=== PATIENT | female | born 1940 | race Caucasian/White ===

== ENCOUNTER 2019-02-27 15:31 | Inpatient (IN) ==
[2019-02-27] MEDS ORDERED: NS 1,000 ML IV ONE ×2 (16:07→18:30)
[2019-02-27] MEDS ORDERED: ROCEPHIN 1 GM in NS 50 ML IV ONE (16:07)
--- NOTE | 2019-02-27 16:19 | PROVIDER DOCUMENTATION ---
HPI-Fever - General Stated Complaint: AMS Time Seen by Provider: 02/27/19 16:01 Source: family, EMS Allergies/Adverse Reactions: Patient Allergies Allergy/AdvReac Type Severity Reaction Status Date / Time oxycodone [Oxycodone] AdvReac Intermediate Unknown Verified 04/15/13 17:51 lorazepam [From Ativan] AdvReac agitation Verified 04/15/13 17:51 sulfamethoxazole AdvReac Unknown Verified 01/19/17 12:35 [From Bactrim] trimethoprim [From Bactrim] AdvReac Unknown Verified 01/19/17 12:35 Home Medications: Home Medication List Medication Instructions Recorded Confirmed Last Taken Type Amlodipine [Norvasc] 5 mg PO DAILY 12/04/12 01/18/17 01/18/17 History 5 Atorvastatin Calcium [Lipitor] 40 mg PO QHS 12/04/12 01/18/17 01/18/17 History 40 Baclofen 20 mg PO BID 12/04/12 01/18/17 01/18/17 History 20 Citalopram [Celexa] 40 mg PO DAILY 12/04/12 01/18/17 01/18/17 History 40mg Dextroamphetamine/Amphetamine 20 mg PO BID 12/04/12 01/18/17 01/18/17 History [Adderall 20 mg Tablet] 20mg Furosemide 40 mg PO QAM 12/04/12 01/18/17 01/18/17 History 40mg Levothyroxine [Synthroid] 100 microgm PO HS 12/04/12 01/18/17 01/18/17 History 100mg Losartan Potassium [Cozaar] 25 mg PO QAM 12/04/12 01/18/17 01/18/17 History 25mg Tizanidine [Zanaflex] 4 mg PO HS 12/04/12 01/18/17 01/18/17 History 4mg Tramadol [Ultram] 50 mg PO Q6H PRN PRN 12/04/12 01/19/17 01/18/17 History Polyethylene Glycol 3350 [Miralax] 17 gm PO DAILY 12/12/12 01/18/17 01/18/17 History 17gram Acetaminophen [Pain Relief] 325 mg PO Q4HR PRN 01/18/17 01/19/17 Unknown History Ascorbate Calcium [Vitamin C] 500 mg PO BID 01/18/17 01/18/17 01/18/17 History 500mg Bisacodyl [Dulcolax] 10 mg VT DAILY PRN PRN 01/18/17 01/19/17 Unknown History Chlorhexidine Gluconate Liquid 2 oz ORDERED BID 01/18/17 01/18/17 01/18/17 History [Hibiclens Liquid] 2 oz Cranberry Fruit Extract [Cranberry] 425 mg PO DAILY 01/18/17 01/18/17 01/18/17 History 425 Cyclosporine 0.05% Oph Drops 3 each BOTH EYES BID 01/18/17 01/18/17 01/18/17 History [Restasis 0.05% Oph Drops] Fexofenadine [Rylee] 180 mg PO DAILY 01/18/17 01/18/17 01/18/17 History Fingolimod HCl [Gilenya] 0.5 mg PO DAILY 01/18/17 01/18/17 01/18/17 History 0.5mg Fluticasone 50 Mcg Nasal [place] 2 spray COLTON DAILY 01/18/17 01/18/17 01/18/17 History [Flonase] Hydrocortisone 1% Cream 1 applicatn TOP DAILY PRN PRN 01/18/17 01/18/17 01/18/17 History Lidocaine 5% Patch [Lidoderm] 1 each TOP DAILY 01/18/17 01/18/17 01/18/17 History 1 Linaclotide [Linzess] 145 mcg PO Q24HR PRN 01/18/17 01/18/17 Unknown History Meloxicam [Mobic] 15 mg PO DAILY 01/18/17 01/18/17 01/18/17 History 15mg Multivitamin with Minerals 1 each PO DAILY 01/18/17 01/18/17 01/18/17 History [Multiple Vitamin] 1 Nitrofurantoin [place]/Macrocryst 100 mg PO 01/18/17 01/18/17 History [Macrobid] Omeprazole 20 mg PO DAILY 01/18/17 01/18/17 01/18/17 History 20mg Oxybutynin Chloride [Oxybutynin 5 mg PO DAILY 01/18/17 01/18/17 01/18/17 History Chloride ER] 5mg Potassium Chloride E.r. [Klor-Con] 20 meq PO DAILY 1001/18/17 01/18/17 History 20MEQ Simethicone [Bicarsim Forte] 125 mg PO 4XDAY 01/18/17 01/18/17 01/18/17 History Trazodone HCl 50 mg PO HS PRN PRN 01/18/17 01/18/17 Unknown History - History of Present Illness-Fever Nature of Presenting Problem: 78 YO F brought in from detention for AMS and fever x 2 days. Pt had urine tested at facility and was found to have a UTI. Brother is at bedside. Per family, pt normally speaks, is not on home o2. At presentation, pt was obtunded and not responding to questions. Arousable to strong stimuli. Maintaining airway. Pt with Temp and elevated HR. Sepsis protocol started. 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: Initiated none Cognitive Baseline: poor alertness Modifying Factors: improves with: nothing Similar Symptoms Previously?: Yes Recently seen or treated by another doctor?: Yes - Glascow Coma Score Best Eye Response (Rolando): (2) open to pain Best Verbal Response (Rolando): (2) incomprehsible sounds Best Motor Response (Rolando): (5) localizes to pain Review of Systems - Adult - REVIEW OF SYSTEMS - ADULT ROS:: limited per condition Constitutional: reports: fever Respiratory: reports: cough Gastrointestinal: reports: abdominal pain (per brother) Past History - Adult - PAST MEDICAL HISTORY-ADULT Review of Records: reports: Social history reviewed & non-contributory. - SOCIAL HISTORY Living Situation: care facility Physical Exam-General - PHYSICAL EXAM-ADULT Initial Vital Signs Reviewed: Yes - CONSTITUTIONAL General Appearance: no apparent distress, obtunded - EYES Eyes: pink conjunctivae - NECK Neck: supple, normal inspection - RESPIRATORY Respiratory: no accessory muscle use, wheezing - CARDIOVASCULAR Cardiovascular: tachycardia - GASTROINTESTINAL (ABDOMEN) Abdominal Exam: non tender, soft Progress - PLAN OF CARE/RESULTS Progress/Plan/Lab Results: Vital Signs - 8 hr 02/27/19 15:42 02/27/19 16:04 02/27/19 16:07 Temperature 98.7 F Pulse Rate 130 H Respiratory Rate 18 Blood Pressure 178/98 127/77 O2 Sat by Pulse Oximetry 99 99 100 02/27/19 16:12 02/27/19 16:31 02/27/19 16:45 Temperature 102.9 F H Pulse Rate 139 H 132 H 142 H Respiratory Rate 19 17 26 H Blood Pressure 127/77 O2 Sat by Pulse Oximetry 99 97 98 02/27/19 17:00 02/27/19 17:02 02/27/19 17:15 Temperature Pulse Rate 130 H 119 H 127 H Respiratory Rate 18 21 19 Blood Pressure 121/57 O2 Sat by Pulse Oximetry 99 99 98 02/27/19 17:30 02/27/19 17:31 02/27/19 17:45 Temperature Pulse Rate 122 H 124 H 115 H Respiratory Rate 23 22 17 Blood Pressure 137/67 O2 Sat by Pulse Oximetry 97 97 97 02/27/19 18:00 02/27/19 18:01 02/27/19 18:15 Temperature Pulse Rate 117 H 115 H 121 H Respiratory Rate 14 17 21 Blood Pressure 109/57 O2 Sat by Pulse Oximetry 96 96 95 02/27/19 18:28 02/27/19 18:30 02/27/19 18:31 Temperature Pulse Rate 115 H 119 H 108 H Respiratory Rate 21 21 13 Blood Pressure 94/51 106/50 O2 Sat by Pulse Oximetry 95 95 95 02/27/19 18:45 02/27/19 19:46 Temperature 98.3 F Pulse Rate 106 H Respiratory Rate 13 Blood Pressure O2 Sat by Pulse Oximetry 95 Laboratory Results - last 24 hr 02/27/19 02/27/19 02/27/19 16:51 16:51 16:51 WBC 7.00 RBC 4.12 L Hgb 12.4 Hct 38.8 MCV 94.2 MCH 30.1 MCHC 32.0 L RDW Std Deviation 15.1 H Plt Count 161 MPV 11.3 H Immature Gran % (Auto) 0.0 Neut % (Auto) 91.2 H Lymph % (Auto) 2.1 L [place] % (Auto) 6.6 Eos % (Auto) 0.1 Baso % (Auto) 0.0 Immature Gran # (Auto) 0.00 Neut # (Auto) 6.38 Lymph # (Auto) 0.15 L [place] # (Auto) 0.46 Eos # (Auto) 0.01 Baso # (Auto) 0.00 Segmented Neutrophils 92 H Band Neutrophils 6 H Lymphocytes 2 L Large Platelets 2+ PT 13.6 INR 1.03 PTT (Actin FS) 35.3 Sodium 136 Potassium 4.3 Chloride 96 L Carbon Dioxide 27 Anion Gap 13 BUN 21 Creatinine 0.9 Estimated GFR/1.73 m2 > 60 BUN/Creatinine Ratio 23 Glucose 150 H Calculated Osmolality 278 Calcium 9.0 Total Bilirubin 1.68 H AST 35 H ALT 26 Alkaline Phosphatase 285 H Creatine Kinase 298 H Creatine Kinase Index 1.7 CK-MB (CK-2) 5.19 H Troponin T Total Protein 6.1 L Albumin 3.5 Globulin 2.6 Albumin/Globulin Ratio 1.3 Plasma Lactate Urine Source Urine Color Urine Turbidity Urine pH Ur Specific [place] Urine Protein Ur Glucose (Stick) Ur Ketones (Stick) Urine Blood Urine Nitrite Urine Bilirubin Urobilinogen Dipstick Urine Leukocytes Urine WBC (Auto) Urine RBC (Auto) U Epithel Cells (Auto) Urine Bacteria (Auto) Urine Crystals Small Round Cells Urine Casts Urine Yeast-like Cells 02/27/19 02/27/19 02/27/19 16:51 16:51 17:46 WBC RBC Hgb Hct MCV MCH MCHC RDW Std Deviation Plt Count MPV Immature Gran % (Auto) Neut % (Auto) Lymph % (Auto) [place] % (Auto) Eos % (Auto) Baso % (Auto) Immature Gran # (Auto) Neut # (Auto) Lymph # (Auto) [place] # (Auto) Eos # (Auto) Baso # (Auto) Segmented Neutrophils Band Neutrophils Lymphocytes Large Platelets PT INR PTT (Actin FS) Sodium Potassium Chloride Carbon Dioxide Anion Gap BUN Creatinine Estimated GFR/1.73 m2 BUN/Creatinine Ratio Glucose Calculated Osmolality Calcium Total Bilirubin AST ALT Alkaline Phosphatase Creatine Kinase Creatine Kinase Index CK-MB (CK-2) Troponin T 0.027 Total Protein Albumin Globulin Albumin/Globulin Ratio Plasma Lactate 1.3 Urine Source CATH Urine Color ORANGE Urine Turbidity TURBID Urine pH 6.0 Ur Specific [place] 1.017 Urine Protein 100 A Ur Glucose (Stick) NEGATIVE Ur Ketones (Stick) 10 A Urine Blood SMALL A Urine Nitrite NEGATIVE Urine Bilirubin NEGATIVE Urobilinogen Dipstick 3 A Urine Leukocytes LARGE A Urine WBC (Auto) TNTC A Urine RBC (Auto) <10 U Epithel Cells (Auto) >10 A Urine Bacteria (Auto) 4+ Urine Crystals NONE SEEN Small Round Cells Not Reportable Urine Casts NONE SEEN Urine Yeast-like Cells NONE SEEN 02/27/19 19:27 WBC RBC Hgb Hct MCV MCH MCHC RDW Std Deviation Plt Count MPV Immature Gran % (Auto) Neut % (Auto) Lymph % (Auto) [place] % (Auto) Eos % (Auto) Baso % (Auto) Immature Gran # (Auto) Neut # (Auto) Lymph # (Auto) [place] # (Auto) Eos # (Auto) Baso # (Auto) Segmented Neutrophils Band Neutrophils Lymphocytes Large Platelets PT INR PTT (Actin FS) Sodium Potassium Chloride Carbon Dioxide Anion Gap BUN Creatinine Estimated GFR/1.73 m2 BUN/Creatinine Ratio Glucose Calculated Osmolality Calcium Total Bilirubin AST ALT Alkaline Phosphatase Creatine Kinase Creatine Kinase Index CK-MB (CK-2) Troponin T Total Protein Albumin Globulin Albumin/Globulin Ratio Plasma Lactate 0.8 Urine Source Urine Color Urine Turbidity Urine pH Ur Specific [place] Urine Protein Ur Glucose (Stick) Ur Ketones (Stick) Urine Blood Urine Nitrite Urine Bilirubin Urobilinogen Dipstick Urine Leukocytes Urine WBC (Auto) Urine RBC (Auto) U Epithel Cells (Auto) Urine Bacteria (Auto) Urine Crystals Small Round Cells Urine Casts Urine Yeast-like Cells Orders Category Date Time Status Cardiac Monitoring DIRECTED Care 02/27/19 16:06 Active IV Insertion ORDERED Care 02/27/19 16:06 Completed Notify MD of + Sepsis Screen NOW Care 02/27/19 16:06 Active Notify Physician As Ordered Care 02/27/19 16:06 Active Nursing- Obtain EKG ONCE Care 02/27/19 17:28 Active CHEST-1 VIEW [RAD] Stat Exams 02/27/19 16:[address] HEAD W/O CONTRAST [CT] Stat Exams 02/27/19 16:07 Completed BLOOD CULTURE [BLDCUL] Stat Lab 02/27/19 16:55 Results CBC WITH DIFF [HEME] Stat Lab 02/27/19 16:51 Completed CK PROFILE [SP CHEM] Stat Lab 02/27/19 16:51 Completed COMPREHENSIVE METABOLIC PANEL [CHEM] Stat Lab 02/27/19 16:51 Completed LACTATE, PLASMA [CHEM] Lab 02/27/19 19:27 Completed LACTATE, PLASMA [CHEM] Lab 02/27/19 22:15 Uncollected LACTATE, PLASMA [CHEM] Q3H Lab 02/27/19 16:51 Completed PROTIME WITH INR [COAG] Stat Lab 02/27/19 16:51 Completed PTT [COAG] Stat Lab 02/27/19 16:51 Completed TROPONIN T Stat Lab 02/27/19 16:51 Completed URINALYSIS W/POSS RFLX CULT [URINALYSIS] Stat Lab 02/27/19 17:46 Completed URINE CULTURE [RM] Routine Lab 02/27/19 17:46 Received URINE MANUAL MICROSCOPIC [URINALYSIS] Stat Lab 02/27/19 17:46 Completed 0.9% Sodium Chloride Inj [Ns] 1,000 ml Med 02/27/19 18:37 Discontinued .ROUTE As directed 0.9% Sodium Chloride Inj [Ns] 1,000 ml Med 02/27/19 16:07 Discontinued IV 999 mls/hr 0.9% Sodium Chloride Inj [Ns] 1,000 ml Med 02/27/19 18:30 Discontinued IV 999 mls/hr CefTRIAXONE [Rocephin] 1 gm Med 02/27/19 16:07 Discontinued 0.9% Sodium Chloride Inj [Ns] 50 ml IV NOW Metoprolol [Lopressor] Med 02/27/19 18:19 Discontinued 15 mg IV 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 normal lactate, no white count. not currently concerned for sepsis. UA positive for UTI. pt with afib with RVR.) Reassessment #2 Time Reassessed: 18:46 Status: improving (Pt with boarderline BPs now. Will hold on the metoprolol for A fib with RVR. Pt now awake and talking after fluids and abx. Daughter at bedside and stating unknown hx of afib. will give another bolus of fluids. plan for admission.) - EKG 1 Time of EKG reading by physician:: 17:35 EKG Read and Signed by:: Jeet Welch EKG Interpretation (*Must complete 3 of following elements*): Abnormal Rate: 126 Rhythm: Afib with RVR - XRAY 1 XRAY Study: Chest Impression: See EMR Report (EXAM: CHEST-1 VIEW INDICATION: sepsis workup TECHNIQUE: One view COMPARISON: 04/15/2013 FINDINGS: The lungs are grossly clear. There is no discrete pleural fluid collection or pneumothorax. The cardiomediastinal silhouette and central vasculature are grossly unremarkable. IMPRESSION: No evidence of acute pathology by plain radiograph. Electronically signed by Bret Muñoz 02/27/2019 4:34 PM) - CT/MRI 1 CT Study: Head Impression: See EMR Report (EXAM: CT HEAD W/O CONTRAST INDICATION: AMS TECHNIQUE: This exam was performed using automated exposure control, adjustment of mA or kV according to patient size, and/or use of iterative reconstruction technique. COMPARISON: 04/15/2013 FINDINGS: There is no definite acute infarct given the limited sensitivity of CT versus MRI. There is no discrete intracranial mass, mass effect, or intracranial hemorrhage. The surrounding soft tissues and bony structures are essentially unremarkable. IMPRESSION: No evidence of acute intracranial pathology. Electronically signed by Bret Muñoz 02/27/2019 4:40 PM) - CONSULTS/PCP/HOSPITALIST Notification #1 *Consult/PCP/Hospitalist*: Dr. Howard Time Discussed: 19:34 Consult Disposition: Will see in ED Departure - Departure Date of Disposition Decision: 02/27/19 Time of Disposition Decision: 18:10 DIAGNOSIS: Atrial fibrillation with RVR, UTI (urinary tract infection) Disposition: ADMITTED INPATIENT 09 Certified Medical Emergency: Emergent Condition: Stable Referrals and Follow-Ups: Hemanth Juan MD [Primary Care Provider] - - Critical Care Note This patient required my direct & personal management of CC.: No Attestation - Physician/ OMA Attestation The physician spent face to face time with patient:: Yes Advanced Practice Provider documentation review:: Supervising physician onsite and consulted in the evaluation and care of this patient. The physician did have a face to face encounter with the patient.
--- NOTE | 2019-02-27 16:36 | Diag Imaging Result Doc PS360 ---
EXAM: CHEST-1 VIEW INDICATION: sepsis workup TECHNIQUE: One view COMPARISON: 04/15/2013 FINDINGS: The lungs are grossly clear. There is no discrete pleural fluid collection or pneumothorax. The cardiomediastinal silhouette and central vasculature are grossly unremarkable. IMPRESSION: No evidence of acute pathology by plain radiograph. Electronically signed by Bret Muñoz 02/27/2019 4:34 PM
--- NOTE | 2019-02-27 16:42 | Diag Imaging Result Doc PS360 ---
EXAM: CT HEAD W/O CONTRAST INDICATION: AMS TECHNIQUE: This exam was performed using automated exposure control, adjustment of mA or kV according to patient size, and/or use of iterative reconstruction technique. COMPARISON: 04/15/2013 FINDINGS: There is no definite acute infarct given the limited sensitivity of CT versus MRI. There is no discrete intracranial mass, mass effect, or intracranial hemorrhage. The surrounding soft tissues and bony structures are essentially unremarkable. IMPRESSION: No evidence of acute intracranial pathology. Electronically signed by Bret Muñoz 02/27/2019 4:40 PM
[2019-02-27 17:10] LABS: EOS# 0.01 X1000 (0.0-0.7); EOS% 0.1 % (0.0-10.0); HEMATOCRIT 38.8 % (37.0-47.0); HEMOGLOBIN 12.4 g/dL (12.0-16.0); LYMPH# 0.15 X1000 (1.2-3.4); LYMPH% 2.1 % (20.5-51.1); MCH 30.1 PG (27-31); MCV 94.2 FL (81-99); MONO# 0.46 X1000 (0.11-0.59); MONO% 6.6 % (1.7-9.3); MPV 11.3 FL (7.4-10.4); NEUT# 6.38 X1000 (1.4-6.5); NEUT% 91.2 % (42.2-75.2); PLT 161 X1000 (130-400); RBC 4.12 XMIL (4.2-5.4); RDW 15.1 % (11.5-14.5)
[2019-02-27 17:17] LABS: INR 1.03; PROTIME 13.6 Seconds (11.0-16.0)
[2019-02-27 17:18] LABS: PTT 35.3 Seconds (22.3-41.8)
[2019-02-27 17:27] LABS: AGAP 13; ALB/GLOB RATIO 1.3; ALBUMIN 3.5 g/dL (3.5-5.0); ALKALINE PHOSPHATASE 285 U/L (32-104); BUN 21 mg/dL (8-22); CHLORIDE 96 mmol/L (98-107); COSMO 278; CREATININE 0.9 mg/dL (0.5-0.9); ESTIMATED GFR > 60; GLUCOSE 150 mg/dL (70-104); GOT 35 U/L (10-30); GPT 26 U/L (10-36); POTASSIUM 4.3 mmol/L (3.5-5.1); SODIUM 136 mmol/L (136-145); TCO2 27 mmol/L (25-35); TOTAL BILIRUBIN 1.68 mg/dL (0.20-1.00); TOTAL PROTEIN 6.1 g/dL (6.3-8.3)
[2019-02-27 17:38] LABS: BANDS 6 % (0-1); LARGE PLATELETS 2+; LYMPHS 2 % (21-51); SEGS 92 % (42-75)
[2019-02-27 17:51] LABS: URINE SOURCE CATH
[2019-02-27 17:57] LABS: BILIRUBIN URINE NEGATIVE (NEGATIVE); BLOOD URINE SMALL (NEGATIVE); COLOR ORANGE; GLUCOSE URINE NEGATIVE (NEGATIVE); KETONE URINE 10 mg/dL (NEGATIVE); LEUKOCYTES URINE LARGE (NEGATIVE); NITRITE URINE NEGATIVE (NEGATIVE); PROTEIN URINE 100 mg/dL (NEGATIVE); SP GRAVITY URINE 1.017; TURBIDITY URINE TURBID (CLEAR); UROBILINOGEN URINE 3 mg/dL (NORMAL)
[2019-02-27 18:00] LABS: CK PROFILE 298 U/L (24-173)
[2019-02-27 18:01] LABS: UR EPITHELIAL CELLS >10 /HPF (<10); URINE BACTERIA 4+ /HPF; URINE RBC <10 /HPF (<10); URINE WBC TNTC /HPF (<10)
[2019-02-27 18:15] LABS: URINE CASTS NONE SEEN; URINE CRYSTALS NONE SEEN; URINE YEAST NONE SEEN
[2019-02-27 18:16] LABS: CK INDEX 1.7 (0.0-2.5); CK-MB 5.19 ng/mL (0.0-5.0)
[2019-02-27] MEDS: LOPRESSOR IV ONE ×2 (18:19→18:28)
[2019-02-27] MEDS ORDERED: NS 1,000 ML ONE (18:37)
[2019-02-27] MEDS ORDERED: ZOFRAN IV PRN (22:06)
--- NOTE | 2019-02-27 22:07 | HISTORY AND PHYSICAL ---
REASON FOR ADMISSION: Two-day history of worsening confusion and increased somnolence. HISTORY OF PRESENT ILLNESS: Ms. Patricia Aguayo is a 70-year-old female with history of multiple sclerosis, hypertension, hypothyroidism, reflux disease, and probable mild dementia. She was brought in today because she became very lethargic, difficult to arouse according to the family who are at bedside. They said that over the last few days she spends more of her time in a very somnolent state and she drifts in and out of consciousness and when she is awake, she is still very confused. She only recognizes her daughter, but that the limitation of her cognitive function. The family are not aware if she has had any diarrhea, vomiting, or any other symptoms. Not aware of any change in her medications, although in the past she was once admitted here for complications due to polypharmacy. REVIEW OF SYSTEMS: Limited due to patient's neuro-cognitive state. ALLERGIES: Oxycodone, Ativan, and Bactrim. HOME MEDICATIONS: Have not been reconciled at this point, but according to the old list, the patient is on just over 20 medications, which include per her old list medications like Celexa, baclofen, Zanaflex, oxybutynin, meloxicam, Adderall, tramadol, Rylee, just to name a few. FAMILY HISTORY: Notable for breast cancer, heart disease in first-degree relatives. SOCIAL HISTORY: The patient does not smoke, drink, or use drugs. Lives in a snf. Has been wheelchair bound for 20 years according to the daughter. SURGICAL HISTORY: Daughter is not aware of any acute surgery at this time. LABORATORY WORK: White count 7000, hemoglobin and hematocrit 12 and 38, platelets 161,000, with 91% neutrophils, too large platelets. BUN 21, creatinine 0.9. Total bilirubin is 1.7, glucose 150, AST 35, ALT 26, alkaline phosphatase 285. CK 298. Lactate is normal. PTT is normal. Urinalysis greater than 10 epithelial cells, 4+ bacteria, large leukocytes. Chest: No acute chest pathology. Head CT was negative for any acute bleed or intracranial lesion. Of note, the patient did develop paroxysmal atrial fibrillation while in the ER and was given some metoprolol and fluids and her heart rate has come down in the 80s and 90 range. PHYSICAL EXAMINATION: VITAL SIGNS: Blood pressure is 115/58, heart rate 114, temperature 99.1, respiratory rate is 20. She is a elderly woman who was sleeping when I walked up, but easily arousable. Oriented to daughter and grandson with assistance. HEENT: Head is normocephalic, atraumatic. Eyes JOSÉ, EOMI. NEUROLOGIC: She follows basic commands. No gross cranial nerve deficits appreciated. No gross motor deficits appreciated in her upper extremities 4/5. Her lower extremities are rated about 1 to 2. ENT: Oropharynx exam: The patient does have mild xerostomia. No cyanosis. NECK: Supple. No JVD or carotid bruit. No thyromegaly. CHEST: Clear when auscultated. Good air entry in both lung pichardo. CARDIOVASCULAR: First and sounds heard. No gallops, rubs regular. ABDOMEN: Protuberant, soft, nontender. No megaly. Bowel sounds are hypoactive. RECTAL: Deferred at this time. EXTREMITIES: Patient has trace edema in lower extremities. 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 Distal pulses are good, regular, symmetrical. No clubbing or peripheral cyanosis. NEUROLOGICAL: See above. SKIN: Intact with mild decreased turgor. MUSCULAR EXAM: Is grossly normal otherwise, except for the patient has slight mild contractures of the MCP joints and slightly hypertonicity of her extremities. ASSESSMENT: 1. Encephalopathy secondary to dehydration and drug interaction. 2. Urinary tract infection. 3. Multiple sclerosis. 4. Type 2 diabetes. 5. Hypertension. 6. Paroxysmal atrial fibrillation. 7. Hypothyroidism. PLAN: The patient will be aggressively hydrated as she responded very well to a liter of fluids. According to the family, has improved sensorium. We will withhold all home medications, especially the ones that are neurotoxic for now and observe while doing hydration. Treat urinary tract infection empirically and observe also. I will strongly recommend that when patient is discharged, that a lot of her medications need to be either discontinued or de-escalated. We will put the patient on Maxipime to cover for potential for Pseudomonas. The patient did have paroxysmal atrial fibrillation per ER physician and we will put patient on low-dose metoprolol for blood pressure and rate control. According to her CHADs-VASc 2 score, she does qualify for anticoagulation, but however, I will defer to primary team. Also order an echocardiogram to assess her left ventricular function. cc: Jessica Howard MD
[2019-02-27] MEDS: NS 1,000 ML IV SCH (23:07)
[2019-02-27] MEDS: LOVENOX SUBQ SCH (23:07)
[2019-02-27] MEDS: MAXIPIME 1 GM in NS 50 ML IV SCH (23:07)
[2019-02-27 23:14] LABS: EOS# 0.02 X1000 (0.0-0.7); EOS% 0.3 % (0.0-10.0); HEMATOCRIT 36.1 % (37.0-47.0); HEMOGLOBIN 11.3 g/dL (12.0-16.0); LYMPH# 0.21 X1000 (1.2-3.4); LYMPH% 3.2 % (20.5-51.1); MCH 29.8 PG (27-31); MCHC 31.3 g/dL (33-37); MCV 95.3 FL (81-99); MONO# 0.71 X1000 (0.11-0.59); MONO% 10.8 % (1.7-9.3); NEUT# 5.64 X1000 (1.4-6.5); NEUT% 85.7 % (42.2-75.2); PLT 151 X1000 (130-400); RBC 3.79 XMIL (4.2-5.4); RDW 15.3 % (11.5-14.5); WBC 6.58 X1000 (4.8-10.8)
[2019-02-27 23:22] LABS: PROTIME 13.3 Seconds (11.0-16.0)
[2019-02-27 23:23] LABS: PTT 36.2 Seconds (22.3-41.8)
[2019-02-27 23:31] LABS: AGAP 12; ALB/GLOB RATIO 0.9; ALKALINE PHOSPHATASE 251 U/L (32-104); BUN 20 mg/dL (8-22); CALCIUM 8.5 mg/dL (8.8-10.2); CHLORIDE 101 mmol/L (98-107); CK PROFILE 242 U/L (24-173); COSMO 276; CREATININE 0.8 mg/dL (0.5-0.9); ESTIMATED GFR > 60; GLUCOSE 121 mg/dL (70-104); GOT 30 U/L (10-30); GPT 23 U/L (10-36); SODIUM 136 mmol/L (136-145); TCO2 23 mmol/L (25-35); TOTAL BILIRUBIN 1.11 mg/dL (0.20-1.00); TOTAL PROTEIN 6.2 g/dL (6.3-8.3)
[2019-02-28 01:06] LABS: CK INDEX 2.2 (0.0-2.5); CK-MB 5.22 ng/mL (0.0-5.0)
[2019-02-28] MEDS: NS 1,000 ML IV SCH (04:50)
[2019-02-28] MEDS: TYLENOL PO PRN (04:50)
[2019-02-28] MEDS ORDERED: LOPRESSOR IV ONE (05:26)
[2019-02-28] MEDS ORDERED: LANOXIN IV ONE (05:27)
[2019-02-28 07:27] LABS: MAGNESIUM 1.6 mg/dL (1.5-2.7); PHOSPHORUS 2.2 mg/dL (2.7-4.5)
[2019-02-28 07:32] LABS: HEMOGLOBIN A1C 5.7 % (4.8-6.0)
[2019-02-28] MEDS ORDERED: MAGNESIUM SULFATE 2 GM/S.W.I. 2 GM/50 ML IVPB IV ONE (07:36)
[2019-02-28 07:56] LABS: TSH 1.04 uIUmL (0.27-4.20)
--- NOTE | 2019-02-28 08:16 | EKG Report ---
Test Performed on : 02/27/2019 5:30:36 PM Test Reason : ED. NO EKG ORDER FOR MUSE Blood Pressure : / mmHG Vent. Rate : 126 BPM Atrial Rate : 102 BPM P-R Int : 000 ms QRS Dur : 086 ms QT Int : 346 ms P-R-T Axes : 000 072 039 degrees QTc Int : 501 ms Atrial fibrillation. with rapid ventricular response. Low voltage QRS Abnormal ECG When compared with ECG of 15-APR-2013 13:10, Atrial fibrillation. has replaced Sinus rhythm. Vent. rate has increased BY 48 BPM Unconfirmed Result
[2019-02-28] MEDS: MAXIPIME 1 GM in NS 50 ML IV SCH (10:41)
[2019-02-28] MEDS: LOPRESSOR PO SCH (10:41)
[2019-02-28] MEDS ORDERED: ALBUMIN 25% IV ONE (12:12)
--- NOTE | 2019-02-28 13:06 | EKG Report ---
Test Performed on : 02/28/2019 12:54:30 PM Test Reason : afib Blood Pressure : / mmHG Vent. Rate : 093 BPM Atrial Rate : 234 BPM P-R Int : 000 ms QRS Dur : 076 ms QT Int : 358 ms P-R-T Axes : 000 084 096 degrees QTc Int : 445 ms Atrial fibrillation. Low voltage QRS Nonspecific ST abnormality Abnormal ECG When compared with ECG of 27-FEB-2019 17:30, (Unconfirmed) ST elevation now present in Inferior leads Confirmed by Christian SETH, P.J.M ([id number]) on 02/28/2019 3:13:52 PM
[2019-02-28] MEDS: LASIX IV SCH (14:12)
[2019-02-28 18:42] LABS: AGAP 16; BUN 15 mg/dL (8-22); CALCIUM 8.7 mg/dL (8.8-10.2); CHLORIDE 101 mmol/L (98-107); COSMO 289; CREATININE 0.8 mg/dL (0.5-0.9); ESTIMATED GFR > 60; GLUCOSE 162 mg/dL (70-104); POTASSIUM 3.1 mmol/L (3.5-5.1); SODIUM 143 mmol/L (136-145); TCO2 26 mmol/L (25-35)
[2019-02-28] MEDS ORDERED: VANCOMYCIN IV PER PHARMACY MISC SCH (18:45)
--- NOTE | 2019-02-28 19:24 | PROGRESS NOTE ---
DATE: 02/28/2019 SUBJECTIVE: The patient is resting comfortably in bed. She states that she feels a lot better today. She is sitting up, eating lunch. OBJECTIVE: Vital signs: Temperature 98.1 degrees, blood pressure 113/68, heart rate 83, respirations 16, O2 saturations 99% on 2 L nasal cannula. General: This is a morbidly obese female lying in bed in no acute distress. Heart: S1, S2 normal. Regular rate and rhythm. Lungs: Clear to auscultation bilaterally. No wheezing. No rales. Abdomen: Positive bowel sounds. Soft, nontender, obese. Extremities: 2+ edema in the upper extremities, 3+ edema in the lower extremities. Neurological: The patient is alert and oriented x3. No focal neurologic deficits noted. LABORATORY DATA: Sodium 143, potassium 3.1, chloride 101, CO2 26, BUN 15, creatinine 0.8, glucose 162, phosphorus 2.2, magnesium 1.6. ASSESSMENT AND PLAN: 1. Metabolic encephalopathy. Slowly resolving. Continue to treat the underlying infection. 2. Urinary tract infection. The urine culture is growing gram-negative rods. Continue with IV antibiotic therapy. We will follow up on the urine culture results. 3. Bacteremia. One bottle out of the one set of blood cultures is growing gram- positive cocci. We will start the patient on vancomycin and follow up on the final blood culture results. 4. Volume overload. The patient has significant peripheral edema. She also has low albumin. We will start IV Lasix and give the patient a dose of albumin and monitor her response. 5. Morbid obesity. Aware. 6. New onset atrial fibrillation. The patient does not have a history of arrhythmia as far she knows. Continue on Lopressor. An echocardiogram has been ordered. We will also consult with the balance assembler for further recommendations. 7. Diabetes mellitus type 2. We will continue on sliding scale insulin. 8. Situational depression. Aware. 9. Hypothyroidism. Continue on Synthroid. 10. Deep vein thrombosis prophylaxis. Continue on Lovenox. 11. We will consult with physical therapy. cc: MD FITO Spencer
[2019-02-28] MEDS ORDERED: VANCOMYCIN 2,000 MG in NS 500 ML IV ONE (20:00)
[2019-02-28] MEDS ORDERED: KLOR-CON PO ONE (20:00)
[2019-02-28] MEDS: LOVENOX SUBQ SCH (21:35)
[2019-03-01] MEDS: MAXIPIME 1 GM in NS 50 ML IV SCH ×3 (00:08→21:28)
[2019-03-01] MEDS: TYLENOL PO PRN (00:08)
[2019-03-01] MEDS: LOPRESSOR PO SCH ×3 (00:08→21:27)
[2019-03-01 06:59] LABS: BASO# 0.01 X1000 (0.0-0.2); BASO% 0.2 % (0.0-0.8); EOS# 0.07 X1000 (0.0-0.7); EOS% 1.1 % (0.0-10.0); HEMATOCRIT 35.2 % (37.0-47.0); HEMOGLOBIN 11.3 g/dL (12.0-16.0); IMM GRAN# 0.05 X1000 (0.0-0.04); IMM GRAN% 0.8 % (0.0-0.5); LYMPH# 0.57 X1000 (1.2-3.4); LYMPH% 9.1 % (20.5-51.1); MCH 29.9 PG (27-31); MCHC 32.1 g/dL (33-37); MCV 93.1 FL (81-99); MONO# 0.89 X1000 (0.11-0.59); MONO% 14.1 % (1.7-9.3); MPV 11.4 FL (7.4-10.4); NEUT% 74.7 % (42.2-75.2); PLT 139 X1000 (130-400); RBC 3.78 XMIL (4.2-5.4); RDW 14.9 % (11.5-14.5); WBC 6.29 X1000 (4.8-10.8)
[2019-03-01 07:19] LABS: AGAP 11; BUN 12 mg/dL (8-22); CALCIUM 8.8 mg/dL (8.8-10.2); CHLORIDE 100 mmol/L (98-107); COSMO 276; CREATININE 0.6 mg/dL (0.5-0.9); ESTIMATED GFR > 60; GLUCOSE 109 mg/dL (70-104); SODIUM 138 mmol/L (136-145); TCO2 27 mmol/L (25-35)
--- NOTE | 2019-03-01 07:24 | Diag Imaging Result Doc PS360 ---
EXAM: CHEST-PORTABLE HISTORY: dyspnea TECHNIQUE: Single view COMPARISON: 02/27/2019 FINDINGS: The lungs are well expanded. The heart is borderline mildly prominent. There is pulmonary edema. There may be underlying basilar infiltrates. Small left pleural effusion. IMPRESSION: Interval worsening Electronically signed by Dominic Jacobo 03/01/2019 7:22 AM
[2019-03-01 07:46] LABS: ALB/GLOB RATIO 1.7; ALBUMIN 3.8 g/dL (3.5-5.0); DIRECT BILIRUBIN 0.7 mg/dL (0.00-0.20); TOTAL BILIRUBIN 1.11 mg/dL (0.20-1.00)
[2019-03-01] MEDS ORDERED: ASPIRIN PO SCH (09:00)
[2019-03-01] MEDS: LASIX IV SCH (10:58)
[2019-03-01] MEDS: SYNTHROID PO SCH (11:06)
--- NOTE | 2019-03-01 13:35 | CONSULTATION ---
DATE OF CONSULTATION: 03/01/2019 IMPRESSION: 1. Persistent atrial fibrillation of unknown duration discovered this admission. Patient asymptomatic from the standpoint of her atrial fibrillation. 2. Current admission precipitated by confusion and altered mental status. The patient has clinically improved since admission. 3. Urinary tract infection reportedly present. 4. Patient nonambulatory and lives in [facility] facility. This was reportedly due to multiple sclerosis. 5. Hypertension. 6. Hypothyroidism. RECOMMENDATIONS: 1. Followup echocardiography. 2. Agree with addition of metoprolol for rate control. 3. Overall management of asymptomatic persistent atrial fibrillation probably best in this patient with rate control and consideration of anticoagulation. She has a CHADS-VASc score of 3, and as such has significant thromboembolic risk. Although she is nonambulatory, she is in a controlled environment, which would mitigate against the potential for falling. Overall, I think it is probably best to initiate anticoagulation with Eliquis as tolerated. This was discussed with the patient and her daughter at the bedside. 4. Overall conservative plans from a cardiovascular standpoint. HISTORY: This 78-year-old white female with past history of multiple sclerosis, longstanding weakness in the lower extremities due to multiple sclerosis resulting in her being nonambulatory, hypertension, and hypothyroidism was admitted on transfer from [facility] facility after she developed altered mental status for more than 24 hours. She is felt to have urinary tract infection, which may have precipitated her presentation. She has improved with treatment. She is noted to be in atrial fibrillation, and metoprolol was initiated. Cardiology was consulted to assist with management. The patient is unaware of her cardiac arrhythmia. She has no palpitations, chest discomfort, shortness of breath, or fatigue. She is nonambulatory due to her lower extremity weakness, and has been in a skilled nursing for at least 6 years. Her family lives in [place] and visits her quite often in the skilled nursing. She seems to have a fair quality of life there, and is dependent upon staff for moving from bed to chair. PAST MEDICAL HISTORY: 1. Multiple sclerosis. 2. Nonambulatory due to multiple sclerosis. 3. Hypertension. 4. Hypothyroidism. 5. Current urinary tract infection, recurrent. ALLERGIES: She is allergic or intolerant to oxycodone, Ativan, to Bactrim. MEDICATIONS PRIOR TO ADMISSION: As listed. SOCIAL HISTORY: She has resided in a [facility] facility for the past 6 years. She does not smoke or use alcohol. FAMILY HISTORY: Negative for premature heart disease. REVIEW OF SYSTEMS: Pulmonary: Noteworthy for tendency for snoring. This seems rather prominent. Pulmonary: Otherwise negative. Gastrointestinal: Negative. Constitutional: Negative. Remainder of review of systems is negative/noncontributory with 14 total systems reviewed. PHYSICAL EXAMINATION: General: This is an obese, older, white female in no distress, on supplemental oxygen per nasal cannula at 1 L/minute. Vital Signs: Blood pressure 139/56, heart rate 94, oxygen saturation 95%. HEENT: Extraocular movements intact. Mucous membranes moist. Neck: Supple without jugular venous distention evident. There are no carotid bruits. Chest: Clear to auscultation bilaterally. Cardiac: Irregular rate and rhythm without appreciable murmur or gallop. Abdomen: Soft. Bowel sounds are normal. Extremities: Without edema. Feet are contracted in plantar flexed position bilaterally. Neurologic: She is alert and appropriately interactive. Speech is fluent. She moves upper extremities, but does not move lower extremities. DIAGNOSTIC DATA: A 12-lead EKG demonstrates atrial fibrillation and nonspecific ST abnormality. LABORATORY DATA: Includes a white blood cell count of 6.29, hematocrit 35.2, hemoglobin 11.3, platelet count 139,000. Sodium 138, potassium 3.0, chloride 100, carbon dioxide 27, BUN 12, creatinine 0.6, glucose 109. cc: Roel Head MD
[2019-03-01] MEDS ORDERED: MIRALAX PO PRN (17:27)
[2019-03-01] MEDS ORDERED: TYLENOL PO PRN (17:27)
[2019-03-01] MEDS: KLOR-CON PO SCH ×2 (18:30→21:28)
--- NOTE | 2019-03-01 18:45 | PROGRESS NOTE ---
DATE: 03/01/2019 INTERVAL HISTORY: No acute events overnight. She did have temperature of 100.3 degrees yesterday. Her tachycardia is improving. She is saturating 95%. Her leukocytosis is improving. Her hypokalemia is being replenished. She is growing Escherichia coli. SUBJECTIVE: She is feeling better, though not up to her baseline. Her family is at bedside. She denies any chest pain. She is mildly short of breath and she is coughing up some sputum. We discussed about urinary tract infection, suspected pneumonia. We also discussed about atrial fibrillation. OBJECTIVE: Temperature 98.3 degrees, pulse 95, respiratory rate 22, blood pressure 140/76. She is saturating 97% on nasal cannula. On physical examination, not in acute distress. Oral cavity is moist. Air entry bilaterally equal. No wheeze or rhonchi. She does have mild inspiratory crackles in bilateral infra-axillary region. S1, S2 normal. Irregularly irregular. No murmur, rub or gallop. Abdomen is distended, soft, nontender. Active bowel sounds. She has bilateral lower extremity edema extending up to midshin level. She also has extensor deformity of bilateral feet because of multiple sclerosis. She is able to wiggle toes to painful stimuli in bilateral upper and lower extremities. LABORATORY DATA: Labs suggestive of no leukocytosis; acceptable range of hemoglobin and platelet count; hypokalemia, currently being replenished; normal kidney function. She does have elevated proBNP, for which she has been started on Lasix. ASSESSMENT AND PLAN: 1. Sepsis due to urinary tract infection, and acute hypoxic respiratory failure due to suspected right lower lobe pneumonia. Follow up sputum culture result. Urinalysis is growing Escherichia coli which is pansensitive. I will continue the patient on intravenous cefepime and follow up sputum culture results. Her acute pulmonary edema could also be contributing to her shortness of breath, for which she is on intravenous Lasix. 2. Atrial fibrillation with rapid ventricular rate, now rate-controlled on oral metoprolol and Eliquis. Appreciate Cardiology recommendation. She is also on intravenous Lasix for volume overload, and her blood culture was only coagulase-negative staphylococci in 1 of 2 blood cultures, suggestive of possibly contamination. 3. History of diabetes mellitus type 2, situational depression and hypothyroidism. I will continue the patient on MiraLAX for constipation, levothyroxine for hypothyroidism, [place]vel[place] for chronic pain and atorvastatin for hyperlipidemia. 4. Disposition: Continue to monitor the patient inside the hospital. Plan of care discussed with the patient and her family at bedside. Their questions have been answered. cc: Ammon Merino MD
[2019-03-01] MEDS ORDERED: VANCOMYCIN 1,500 MG in NS 250 ML IV SCH (20:00)
--- NOTE | 2019-03-01 20:31 | ECHO REPORT ---
ORDER DATE: 02/27/2019 MEASUREMENTS: Septal thickness 1.1, aortic root 2.2, left atrium 3.0. SUMMARY: 1. Very difficult study for interpretation due to very limited acoustic window quality. 2. Aortic valve is trileaflet and demonstrates a very mild sclerosis. Aortic valve opening appears to be adequate. The peak gradient across the aortic valve is less than 10 mmHg. There is very mild aortic regurgitation. Mild mitral annular calcification is demonstrated. There is mild mitral regurgitation. Tricuspid valve was without evidence of structural abnormality while pulmonic valve was not well demonstrated. There is mild tricuspid regurgitation. The estimated systolic PA pressure by Doppler is 30 to 35 mmHg. The aortic root is normal in size. 3. Normal left ventricular dimensions suggested. The estimated left ventricular ejection fraction appears to be at least 55%. No obvious regional wall motion abnormality can be appreciated. Left atrium, right atrium and right ventricle are grossly normal in size with grossly preserved right ventricular systolic function. 4. No pericardial effusion. 5. Appearance of inferior vena cava suggests normal central venous pressure. cc: MD Jessica Jon MD
[2019-03-01] MEDS: LIPITOR PO SCH (21:28)
[2019-03-01] MEDS: ELIQUIS PO SCH (21:28)
[2019-03-02] MEDS: TYLENOL PO PRN (03:35)
[2019-03-02] MEDS: SYNTHROID PO SCH ×2 (03:35→08:08)
[2019-03-02 06:38] LABS: BASO# 0.01 X1000 (0.0-0.2); BASO% 0.1 % (0.0-0.8); EOS% 1.5 % (0.0-10.0); HEMATOCRIT 38.4 % (37.0-47.0); HEMOGLOBIN 12.5 g/dL (12.0-16.0); IMM GRAN# 0.14 X1000 (0.0-0.04); LYMPH# 0.42 X1000 (1.2-3.4); LYMPH% 6.1 % (20.5-51.1); MCH 29.8 PG (27-31); MCHC 32.6 g/dL (33-37); MCV 91.4 FL (81-99); MONO# 1.08 X1000 (0.11-0.59); MONO% 15.8 % (1.7-9.3); MPV 11.5 FL (7.4-10.4); NEUT# 5.08 X1000 (1.4-6.5); NEUT% 74.5 % (42.2-75.2); PLT 208 X1000 (130-400); RDW 14.6 % (11.5-14.5); WBC 6.83 X1000 (4.8-10.8)
[2019-03-02 07:04] LABS: AGAP 16; ALBUMIN 3.8 g/dL (3.5-5.0); BUN 11 mg/dL (8-22); CHLORIDE 95 mmol/L (98-107); COSMO 276; CREATININE 0.5 mg/dL (0.5-0.9); ESTIMATED GFR > 60; GLUCOSE 108 mg/dL (70-104); POTASSIUM 3.8 mmol/L (3.5-5.1); SODIUM 138 mmol/L (136-145); TCO2 27 mmol/L (25-35)
[2019-03-02] MEDS: ELIQUIS PO SCH ×2 (08:04→22:14)
[2019-03-02] MEDS: LOPRESSOR PO SCH ×2 (08:04→22:15)
[2019-03-02] MEDS: LASIX IV SCH (08:05)
[2019-03-02] MEDS: MAXIPIME 1 GM in NS 50 ML IV SCH (11:51)
[2019-03-02] MEDS: ZYVOX 600 MG/D5W 600 MG/300 ML IVPB IV SCH (15:19)
[2019-03-02] MEDS: LIORESAL PO PRN (15:20)
--- NOTE | 2019-03-02 20:16 | PROGRESS NOTE ---
DATE: 03/02/2019 SUBJECTIVE: The patient feels much better today. She has less swelling in her arms, and the swelling in her lower extremities is also improving. OBJECTIVE: Vital Signs: Temperature 98.4, blood pressure 147/70, heart rate 112, respirations 18, O2 saturation 98% on 2 L nasal cannula. Intake 900 mL, output 3.2 L. General: This is a iolquzkbzui-nnk-ygxmyqlxn elderly female lying in bed in no acute distress. Heart: S1, S2. Lungs: Normal. Equal air entry bilaterally. No wheezing. No rales. Abdomen: Positive bowel sounds. Soft, nontender, nondistended. Extremities: 2+ edema in the lower extremities. Neurologic: The patient is alert and oriented x3. LABS: Glucose 108, sodium 138, potassium 3.8, chloride 95, CO2 27, BUN 11, creatinine 0.5, calcium 9.0. White blood cell count 6.8, hemoglobin 12, hematocrit 38 platelets 208. ASSESSMENT AND PLAN: 1. Metabolic encephalopathy. Resolved. 2. Urinary tract infection secondary to Escherichia coli. Continue with antibiotic therapy. 3. Volume overload. Continue with IV Lasix. The patient is the patient's albumin is improved after receiving 1 infusion of albumin. We will continue to monitor this closely. 4. Morbid obesity. Aware. 5. New onset atrial fibrillation. The patient is on Lopressor and Eliquis. 6. Hypothyroidism. Continue on Synthroid. 7. Situational depression. Aware. 8. Diabetes mellitus type 2. Continue on sliding scale insulin. 9. Deep vein thrombosis prophylaxis. Continue on Lovenox. 10. Continue with physical therapy. cc: MD FITO Spencer
[2019-03-02] MEDS: LIPITOR PO SCH (22:15)
[2019-03-02] MEDS: ZANAFLEX PO SCH (22:24)
[2019-03-02] MEDS: MAXIPIME 2 GM in NS 100 ML IV SCH (22:24)
[2019-03-03] MEDS: ZYVOX 600 MG/D5W 600 MG/300 ML IVPB IV SCH ×2 (01:42→13:08)
[2019-03-03] MEDS: LIORESAL PO PRN ×2 (05:04→21:01)
[2019-03-03] MEDS: TYLENOL PO PRN (05:04)
[2019-03-03] MEDS: SYNTHROID PO SCH ×2 (05:08→06:17)
[2019-03-03 07:07] LABS: HEMATOCRIT 39.9 % (37.0-47.0); HEMOGLOBIN 12.7 g/dL (12.0-16.0); MCH 29.3 PG (27-31); MCHC 31.8 g/dL (33-37); MCV 91.9 FL (81-99); RBC 4.34 XMIL (4.2-5.4); RDW 14.7 % (11.5-14.5); WBC 6.28 X1000 (4.8-10.8)
[2019-03-03 07:30] LABS: MAGNESIUM 1.9 mg/dL (1.5-2.7); PHOSPHORUS 2.8 mg/dL (2.7-4.5)
[2019-03-03 07:46] LABS: AGAP 12; BUN 8 mg/dL (8-22); CALCIUM 9.1 mg/dL (8.8-10.2); CHLORIDE 94 mmol/L (98-107); COSMO 273; CREATININE 0.5 mg/dL (0.5-0.9); ESTIMATED GFR > 60; GLUCOSE 111 mg/dL (70-104); SODIUM 137 mmol/L (136-145); TCO2 31 mmol/L (25-35)
[2019-03-03] MEDS ORDERED: KLOR-CON PO ONE (07:47)
--- NOTE | 2019-03-03 08:25 | Diag Imaging Result Doc PS360 ---
EXAM: CHEST-1 VIEW - 03/03/2019 HISTORY: pneumonia TECHNIQUE: Portable chest one view COMPARISON: 03/01/2019 FINDINGS: There is stable borderline cardiomegaly. There has been interval decrease in bilateral infiltrates or edema. There is no substantial pleural effusion or pneumothorax identified. IMPRESSION: Interval decrease in bilateral infiltrates/edema. Electronically signed by Chino Oneill 03/03/2019 8:22 AM
[2019-03-03] MEDS: ELIQUIS PO SCH ×2 (10:10→20:54)
[2019-03-03] MEDS: LASIX IV SCH (10:10)
[2019-03-03] MEDS: LOPRESSOR PO SCH ×3 (10:10→20:55)
[2019-03-03] MEDS: MAXIPIME 2 GM in NS 100 ML IV SCH ×2 (11:55→23:14)
[2019-03-03] MEDS ORDERED: VALTREX PO ONE (11:56)
[2019-03-03] MEDS: ABREVA CREAM TOP SCH ×4 (13:08→20:56)
[2019-03-03] MEDS: XOPENEX NEB INH SCH ×3 (15:03→19:14)
--- NOTE | 2019-03-03 18:21 | PROGRESS NOTE ---
DATE: 03/03/2019 SUBJECTIVE: The patient is resting comfortably. She complains of fever blisters on her lip. OBJECTIVE: Vital Signs: Temperature 98.6 degrees, blood pressure 130/64, heart rate 104, respirations 18, O2 saturation is 96% on 2 L nasal cannula. General: This is a morbidly obese, elderly female, lying in bed in no acute distress. Heart: S1, S2 normal. Regular rate and rhythm. Lungs: Equal air entry bilaterally. No wheezing. No rales. Abdomen: Positive bowel sounds. Soft, obese, nontender, nondistended. Extremities: Edema 1+ bilaterally in lower extremities. Neurologic: The patient is alert and oriented x3. LABORATORY DATA: White blood cell count 6.2, hemoglobin 12, hematocrit 39, platelets 251,000. Sodium 137, potassium 3, chloride 94, CO2 of 31, BUN 8, creatinine 0.5, glucose 111. Phosphorus 2.8, magnesium 1.9. IMAGING: Chest x-ray shows improvement in the infiltrates and edema. ASSESSMENT AND PLAN: 1. Metabolic encephalopathy. Resolved. 2. Pneumonia. Continue with antibiotic therapy. 3. Urinary tract infection secondary to Escherichia coli. Continue with the current antibiotic regimen. 4. Volume overload. Improved. Continue with diuretic therapy. 5. New-onset atrial fibrillation. Continue on Lopressor and Eliquis. 6. Morbid obesity. Aware. 7. Hypothyroidism. Continue on Synthroid. 8. Situational depression. Aware. 9. Deep vein thrombosis prophylaxis. The patient is on Eliquis. 10. Disposition. The patient is a resident at [facility] and she will return there once medically stable. cc: Isa Rico MD [facility]
[2019-03-03] MEDS: ZANAFLEX PO SCH (20:55)
[2019-03-03] MEDS: LIPITOR PO SCH (20:55)
[2019-03-04] MEDS: ZYVOX 600 MG/D5W 600 MG/300 ML IVPB IV SCH ×2 (00:40→13:41)
[2019-03-04 06:34] LABS: HEMATOCRIT 39.1 % (37.0-47.0); HEMOGLOBIN 12.7 g/dL (12.0-16.0); MCH 30.2 PG (27-31); MCHC 32.5 g/dL (33-37); MCV 93.1 FL (81-99); MPV 10.7 FL (7.4-10.4); RBC 4.2 XMIL (4.2-5.4); RDW 15.2 % (11.5-14.5); WBC 6.17 X1000 (4.8-10.8)
[2019-03-04] MEDS: SYNTHROID PO SCH (06:47)
[2019-03-04 07:00] LABS: AGAP 13; BUN 9 mg/dL (8-22); CALCIUM 9.3 mg/dL (8.8-10.2); CHLORIDE 99 mmol/L (98-107); COSMO 283; CREATININE 0.6 mg/dL (0.5-0.9); ESTIMATED GFR > 60; GLUCOSE 115 mg/dL (70-104); POTASSIUM 3.4 mmol/L (3.5-5.1); SODIUM 142 mmol/L (136-145); TCO2 30 mmol/L (25-35)
[2019-03-04 07:40] LABS: ALB/GLOB RATIO 1.5; ALBUMIN 3.8 g/dL (3.5-5.0); DIRECT BILIRUBIN 0.3 mg/dL (0.00-0.20); TOTAL BILIRUBIN 0.61 mg/dL (0.20-1.00); TOTAL PROTEIN 6.3 g/dL (6.3-8.3)
[2019-03-04] MEDS ORDERED: KLOR-CON PO ONE (07:53)
[2019-03-04] MEDS: LOPRESSOR PO SCH ×2 (09:22→23:15)
[2019-03-04] MEDS: ELIQUIS PO SCH ×2 (09:22→23:14)
[2019-03-04] MEDS: PATIENT'S OWN MED PO SCH (09:23)
[2019-03-04] MEDS: LASIX IV SCH (09:23)
[2019-03-04] MEDS: ABREVA CREAM TOP SCH ×5 (09:24→23:15)
[2019-03-04] MEDS: XOPENEX NEB INH SCH ×4 (10:12→19:07)
[2019-03-04] MEDS: MAXIPIME 2 GM in NS 100 ML IV SCH ×2 (11:22→23:16)
--- NOTE | 2019-03-04 15:09 | PROGRESS NOTE ---
DATE: 03/04/2019 SUBJECTIVE: The patient is resting comfortably in bed. She has no complaints. OBJECTIVE: Vital Signs: Temperature 98.7 degrees, blood pressure 148/81, heart rate 64, respirations 20, O2 saturation 95% on room air. General: This is a morbidly obese female, lying in bed in no acute distress. Heart: S1, S2 normal. Regular rate and rhythm. Lungs: Clear to auscultation bilaterally. Abdomen: Positive bowel sounds. Soft, obese, nontender, nondistended. Extremities: There is 1+ edema in the lower extremities. Neurologic: The patient is alert and oriented x3. LABORATORY DATA: White blood cell count 6.1, hemoglobin 12, hematocrit 39, platelets 294,000. Sodium 142, potassium 3.4, chloride 99, CO2 of 30, BUN 9, creatinine 0.6, glucose 115. AST 54, ALT 53, alkaline phosphatase 366. ASSESSMENT AND PLAN: 1. Metabolic encephalopathy. Resolved. 2. Pneumonia. Slowly improving. Continue with antibiotic therapy. 3. Urinary tract infection secondary to Escherichia coli. Continue on the current antibiotic regimen. 4. Volume overload. Slowly improving. Continue on Lasix. 5. Atrial fibrillation. Continue on Lopressor and Eliquis. 6. Morbid obesity. Aware. 7. Multiple sclerosis. Aware. 8. Hypothyroidism. Continue on Synthroid. 9. Deep vein thrombosis prophylaxis. The patient is on Eliquis. 10. Disposition. The patient will be discharged to [facility] once she is medically stable. Continue with physical therapy. cc: Isa Rico MD MTDD
[2019-03-04] MEDS: MYLICON PO PRN (18:18)
[2019-03-04] MEDS: ZANAFLEX PO SCH (23:15)
[2019-03-04] MEDS: LIPITOR PO SCH (23:15)
[2019-03-05] MEDS: ZYVOX 600 MG/D5W 600 MG/300 ML IVPB IV SCH ×3 (00:12→13:25)
[2019-03-05] MEDS: XOPENEX NEB INH SCH ×7 (00:17→23:41)
[2019-03-05] MEDS: SYNTHROID PO SCH (06:28)
[2019-03-05] MEDS: TYLENOL PO PRN (06:32)
[2019-03-05 07:30] LABS: MAGNESIUM 1.8 mg/dL (1.5-2.7); PHOSPHORUS 2.6 mg/dL (2.7-4.5)
[2019-03-05 07:33] LABS: AGAP 15; BUN 9 mg/dL (8-22); CALCIUM 9.6 mg/dL (8.8-10.2); CHLORIDE 101 mmol/L (98-107); COSMO 289; CREATININE 0.7 mg/dL (0.5-0.9); ESTIMATED GFR > 60; GLUCOSE 127 mg/dL (70-104); POTASSIUM 4.4 mmol/L (3.5-5.1); SODIUM 145 mmol/L (136-145); TCO2 29 mmol/L (25-35)
[2019-03-05] MEDS: LOPRESSOR PO SCH ×2 (08:35→20:34)
[2019-03-05] MEDS: ELIQUIS PO SCH ×2 (08:35→20:34)
[2019-03-05] MEDS: PATIENT'S OWN MED PO SCH (08:36)
[2019-03-05] MEDS: ABREVA CREAM TOP SCH ×5 (08:37→20:34)
[2019-03-05] MEDS: NS NEB INH SCH ×2 (09:02→15:41)
[2019-03-05] MEDS: MAXIPIME 2 GM in NS 100 ML IV SCH ×2 (11:43→23:02)
[2019-03-05] MEDS ORDERED: BLISTEX MEDICATED BERRY LIP BALM TOP PRN (13:19)
--- NOTE | 2019-03-05 18:25 | PROGRESS NOTE ---
DATE: 03/05/2019 SUBJECTIVE: The patient is sitting up in bed resting comfortably. She said she had a good night, was able to sleep. No acute events. OBJECTIVE: Vital Signs: Temperature 98.3 degrees, blood pressure 159/78, heart rate 87, respirations 18, O2 saturations 96% on room air. General: This is a chronically ill-appearing elderly female lying in bed in no acute distress. Heart: S1, S2 normal. Tachycardic. Lungs: Equal air entry bilaterally. No wheezing. No rales. Abdomen: Positive bowel sounds. Soft, nontender, nondistended. Extremities: No edema no cyanosis. Neurologic: The patient is alert and oriented x3. LABORATORY DATA: Sodium 145, potassium 4.4, chloride 101, CO2 29, creatinine 0.7, BUN 9, glucose 127, phosphorus 2.6, magnesium 1.8. ASSESSMENT AND PLAN: 1. Metabolic encephalopathy, resolved. 2. Pneumonia. Improved. We will order a chest x-ray to be done tomorrow. Continue on the current antibiotic regimen. 3. Volume overload. Improved. We will switch the patient to oral Lasix. 4. Paroxysmal atrial fibrillation. The patient is rate controlled. Continue on Lopressor and Eliquis. 5. Morbid obesity with a body mass index of 34. Aware. 6. Multiple sclerosis. Aware. 7. Hypothyroidism. Continue on Synthroid. 8. Deep vein thrombosis prophylaxis. Continue on Eliquis. 9. Disposition. The patient should be stable for discharge to [facility] tomorrow if she does well overnight. cc: Isa Rico MD MTDD
[2019-03-05] MEDS: ZANAFLEX PO SCH (20:33)
[2019-03-05] MEDS: RESTASIS 0.05% OPH DROPS BOTH EYES SCH (20:33)
[2019-03-05] MEDS: LIPITOR PO SCH (20:34)
[2019-03-05] MEDS: LIORESAL PO PRN (20:39)
[2019-03-06] MEDS: ZYVOX 600 MG/D5W 600 MG/300 ML IVPB IV SCH (01:30)
[2019-03-06] MEDS: XOPENEX NEB INH SCH ×3 (03:13→15:12)
[2019-03-06] MEDS: SYNTHROID PO SCH (07:15)
--- NOTE | 2019-03-06 07:49 | Diag Imaging Result Doc PS360 ---
CHEST-1 VIEW - 03/06/2019 INDICATION: pneumonia COMPARISON: 03/03/2019 FINDINGS: There is some patchy central infiltrate or atelectasis bilaterally. Heart size is normal. No pneumothorax or pleural effusion. IMPRESSION: No change from prior. Electronically signed by Fredy Toth 03/06/2019 7:47 AM
[2019-03-06 07:53] LABS: AGAP 13; BUN 6 mg/dL (8-22); CALCIUM 9.3 mg/dL (8.8-10.2); CHLORIDE 103 mmol/L (98-107); COSMO 285; CREATININE 0.5 mg/dL (0.5-0.9); ESTIMATED GFR > 60; GLUCOSE 117 mg/dL (70-104); POTASSIUM 3.8 mmol/L (3.5-5.1); SODIUM 144 mmol/L (136-145); TCO2 28 mmol/L (25-35)
[2019-03-06 08:03] LABS: ALB/GLOB RATIO 1.4; ALBUMIN 3.7 g/dL (3.5-5.0); DIRECT BILIRUBIN 0.1 mg/dL (0.00-0.20); TOTAL BILIRUBIN 0.47 mg/dL (0.20-1.00); TOTAL PROTEIN 6.4 g/dL (6.3-8.3)
[2019-03-06 09:10] LABS: HEMOGLOBIN 12.4 g/dL (12.0-16.0); MCH 30.1 PG (27-31); MCHC 31.8 g/dL (33-37); MCV 94.7 FL (81-99); MPV 10.5 FL (7.4-10.4); RBC 4.12 XMIL (4.2-5.4); RDW 15.3 % (11.5-14.5); WBC 6.27 X1000 (4.8-10.8)
[2019-03-06] MEDS: NS NEB INH SCH ×2 (09:34→15:12)
[2019-03-06] MEDS: LIORESAL PO PRN ×2 (10:05→22:26)
[2019-03-06] MEDS: MAXIPIME 2 GM in NS 100 ML IV SCH ×2 (10:06→22:26)
[2019-03-06] MEDS: ABREVA CREAM TOP SCH ×5 (10:06→19:53)
[2019-03-06] MEDS: LASIX PO SCH (10:06)
[2019-03-06] MEDS: RESTASIS 0.05% OPH DROPS BOTH EYES SCH ×2 (10:06→19:50)
[2019-03-06] MEDS: ELIQUIS PO SCH ×2 (10:06→19:51)
[2019-03-06] MEDS: LOPRESSOR PO SCH ×2 (10:06→19:52)
[2019-03-06] MEDS: MYLICON PO PRN ×2 (10:18→15:21)
[2019-03-06] MEDS: PATIENT'S OWN MED PO SCH (10:21)
[2019-03-06] MEDS: ZYVOX PO SCH ×2 (10:53→22:26)
[2019-03-06] MEDS: NORCO-5 PO PRN (15:19)
[2019-03-06] MEDS ORDERED: SYSTANE EYE DROPS BOTH EYES PRN (16:02)
[2019-03-06] MEDS ORDERED: XOPENEX NEB INH PRN (17:30)
[2019-03-06] MEDS: LIPITOR PO SCH (19:52)
--- NOTE | 2019-03-06 21:14 | PROGRESS NOTE ---
DATE: 03/06/2019 INTERVAL HISTORY: No acute events overnight. Her pulse and blood pressures have been within acceptable range. The patient denies chest pain. SUBJECTIVE: She denies chest pain, shortness of breath, cough, nausea, vomiting. She had occasional abdominal discomfort. We discussed about her improving pneumonia, atrial fibrillation, and pulmonary edema. We also discussed about risk versus benefit of blood thinners and we decided to continue it. We discussed about possible discharge plan tomorrow. VITALS: Currently, temperature 98.4 degrees, pulse 101, respiratory 14, blood pressure 140/74. She is saturating 96% on room air. PHYSICAL EXAMINATION: General: Not in acute distress. Mouth: Oral cavity is moist. Lungs: Air entry bilaterally equal. No wheeze, rhonchi, or crackles. Cardiovascular: S1, S2 normal. Irregularly irregular heart rate of 101. No murmur, rub, or gallop. Abdomen: Obese, soft, nontender. Active bowel sounds. Extremities: She does have a extensor deformity of bilateral lower extremity related to multiple sclerosis. Mild pedal edema. Neurologic: She is alert and oriented x3. LABS: Suggestive of no leukocytosis. Normal electrolytes. Microbiology: No new data. ASSESSMENT AND PLAN: 1. Sepsis due to urinary tract infection due to Escherichia coli and acute hypoxic respiratory failure due to right lower lobe pneumonia, now improving. Her acute pulmonary edema has also resolved. I will continue her intravenous antibiotics with plan to stop it tomorrow. She has so far received about 5 to 6 days of antibiotics. 2. Atrial fibrillation with rapid ventricular rate on presentation, now within acceptable range. Continue current dose of metoprolol and Eliquis. Her echocardiogram did not have any significant left ventricular dysfunction. 3. Mild exacerbation of heart failure with preserved ejection fraction, currently in acceptable range. 4. Morbid obesity, multiple sclerosis, hypothyroidism, currently stable. I will continue her on her home medications. 5. She has history of diabetes mellitus type 2, situational despite depression, which I will continue her home medications. 6. Disposition. My plan is to discharge her to long-term nursing home facility tomorrow. Plan of care discussed with her. Her questions have been answered. I will stop intravenous antibiotics tonight. cc: Ammon Merino MD
[2019-03-07] MEDS: ABREVA CREAM TOP SCH ×4 (01:09→13:41)
[2019-03-07] MEDS: LOPRESSOR PO SCH ×2 (01:09→10:03)
[2019-03-07] MEDS: LIPITOR PO SCH (01:10)
[2019-03-07] MEDS: RESTASIS 0.05% OPH DROPS BOTH EYES SCH ×2 (01:10→10:00)
[2019-03-07] MEDS: ELIQUIS PO SCH ×2 (01:10→10:00)
[2019-03-07] MEDS: SYNTHROID PO SCH (06:54)
[2019-03-07] MEDS: NORCO-5 PO PRN (06:58)
[2019-03-07] MEDS: LASIX PO SCH (10:00)
[2019-03-07] MEDS: PATIENT'S OWN MED PO SCH (10:01)
[2019-03-07 12:20] VITALS: BP 137/69
--- NOTE | 2019-03-07 13:07 | DISCHARGE SUMMARY ---
ADMISSION DATE: 02/27/2019 DISCHARGE DATE: 03/07/2019 [facility] DISCHARGE CONDITION: Hemodynamically stable. She is alert and oriented. She denies any chest pain, shortness of breath, nausea, vomiting, cough, or abdominal pain. We discussed about multiple medication interactions contributing to acute encephalopathy. We discussed about atrial fibrillation, rapid ventricular rate, and follow up with the environmental services supervisor as well as regular physician and neurologist. Her is at bedside. All of their questions have been answered. DISCHARGE DIAGNOSES: 1. Sepsis due to urinary tract infection. 2. Atrial fibrillation with rapid ventricular rate. 3. Acute hypoxic respiratory failure due to right lower lobe pneumonia as well as mild acute heart failure exacerbation. 4. Heart failure with preserved ejection fraction with mild exacerbation. 5. Metabolic acute encephalopathy due to medication interaction. 6. E. Coli urinary tract infection. 7. Morbid obesity. 8. New onset atrial fibrillation. OTHER DIAGNOSES: 1. History of multiple sclerosis. 2. History of essential hypertension. 3. Hypothyroidism. 4. Chronic gastroesophageal reflux disease. DISCHARGE MEDICATIONS: 1. Atorvastatin 40 mg at nighttime. 2. [place] 5 one tablet every nighttime as needed for pain. 3. Adderall 20 mg tablet b.i.d. that is her home medication. 4. Simethicone 125 mg 4 times a day. 5. Dulcolax suppository 10 mg rectal daily. 6. Fluticasone 50 mcg nasal spray 2 spray nasal inhaled daily. 7. Lasix 40 mg in the morning time. 8. Fingolimod or Gilenya 0.5 mg daily. 9. 1% hydrocortisone cream 1 application topical daily. 10. Potassium chloride 20 mEq daily. 11. Lidocaine patch 1 patch topical daily over lower back for back pain. 12. MiraLAX 17 g daily. 13. Multivitamin with minerals 1 tablet daily. 14. Omeprazole 20 mg daily. 15. Acetaminophen 325 mg every 6 hours as needed for pain. 16. Cyclosporine 0.05% ophthalmic eyedrops 3 drops both eyes daily. 17. Levothyroxine 100 mcg daily. 18. Apixaban 5 mg b.i.d. 19. Baclofen 10 mg b.i.d. as needed for muscle spasm. 20. Metoprolol 25 mg b.i.d. 21. Systane eyedrops 1 drop both eyes daily. VITALS: At time of discharge, temperature 98.9 degrees, pulse 98, respiratory rate 16, blood pressure 137/69, and saturating 93% on room air. PHYSICAL EXAMINATION: Not in acute distress. HEENT: Oral cavity is moist. Lungs: Air entry bilaterally equal. No wheeze, rhonchi, or crackles. Cardiovascular: S1, S2 normal. No murmur or gallop. Abdomen: Soft, nontender. Extremities: No lower extremity edema. She does have extensor deformity of bilateral lower extremity edema. She is able to wiggle her toes. She is not able to raise lower extremity above ground level. Neurologic: She is alert and oriented x3 and answering all questions appropriately. SIGNIFICANT LABORATORY: WBC 6.2, hemoglobin 12.4, and platelets 355,000. BUN 6 and creatinine 0.5. MICROBIOLOGY: Urinalysis was growing Escherichia coli which was sensitive to all antibiotics. SIGNIFICANT IMAGING DURING HOSPITAL ADMISSION: 1. Chest x-ray on presentation did not have any evidence of acute pathology. 2. Head CT on presentation performed for acute mental status changes did not have any evidence of acute intracranial pathology. 3. Echocardiogram had ejection fraction of 55%. No obvious regional wall motion abnormality with preserved right ventricular function and normal central venous pressure. She did have pulmonary artery pressure of 30 to 35 mmHg. 4. Chest x-ray on 03/06 did not have acute pathology. She did have some atelectasis bilaterally without any pneumothorax. 5. Electrocardiogram on admission had atrial fibrillation with rapid ventricular response. 6. Electrocardiogram 02/28 had atrial fibrillation but the response was well controlled. HOSPITAL COURSE SUMMARY: Ms. Aguayo is 78 year old lady who had presented on 02/27/2019 with 2-day history of worsening confusion and increased somnolence. She had prior history of multiple sclerosis, and was listed to be taking multiple sedative hypnotic medication including fexofenadine, narcotics, tizanidine, baclofen, tramadol and trazodone. On arrival, she was hemodynamically stable except a fever of 102.9 and tachycardia of 130. She also had evidence of congestion in her chest so she was admitted for acute encephalopathy, suspected urinary tract infection, and atrial fibrillation. Her sedative medications were stopped, and she was started on broad-spectrum intravenous antibiotics. Her urinalysis grew Escherichia coli, following which her antibiotics were downgraded. There was evidence of pneumonia on the chest x-ray which also improved with antibiotics. Cardiology was consulted for atrial fibrillation. She was started on metoprolol and apixaban. At the time of discharge, the patient's heart rate is well controlled on current dose of metoprolol. She has been on apixaban, which she has been tolerating well. She has been off antibiotics, and does not have any leukocytosis or signs of worsening pneumonia or urine infection. It was decided to discharge her to rehab. At the time of discharge the patient and her were instructed about following up with neurologist and discussing about stopping the sedating medications as appropriate. They were also counseled about following with a heart doctor and regular provider. TIME SPENT: More than 30 minutes of time was spent in discharging this patient. Plan of care discussed with them. All of their questions have been answered. cc: Ammon Merino MD
[2019-03-07] MEDS: MYLICON PO PRN (13:41)
[2019-03-07] MEDS: LIORESAL PO PRN (13:41)
== END 2019-03-07 14:41 | DRG 871 ==
LOC: SUPCPDRO → ED 15:31 → SUATTDRO 21:38 → 4N 21:38
PROVIDERS: ATTEND Internal Medicine

== ENCOUNTER 2019-04-04 13:31 | Inpatient (IN) ==
[2019-04-04 14:10] LABS: BASO# 0.02 X1000 (0.0-0.2); BASO% 0.4 % (0.0-0.8); EOS% 3.7 % (0.0-10.0); HEMATOCRIT 44.1 % (37.0-47.0); HEMOGLOBIN 13.9 g/dL (12.0-16.0); IMM GRAN# 0.01 X1000 (0.0-0.04); IMM GRAN% 0.2 % (0.0-0.5); MCH 29.4 PG (27-31); MCHC 31.5 g/dL (33-37); MCV 93.2 FL (81-99); MONO# 0.82 X1000 (0.11-0.59); MONO% 15.2 % (1.7-9.3); MPV 9.6 FL (7.4-10.4); NEUT# 3.65 X1000 (1.4-6.5); NEUT% 67.5 % (42.2-75.2); PLT 350 X1000 (130-400); RBC 4.73 XMIL (4.2-5.4); RDW 15.7 % (11.5-14.5)
[2019-04-04 14:31] LABS: URINE SOURCE CATH
[2019-04-04 14:34] LABS: INR 1.27; PROTIME 16.6 Seconds (11.0-16.0)
[2019-04-04 14:35] LABS: PTT 39.7 Seconds (22.3-41.8)
[2019-04-04 14:36] LABS: BILIRUBIN URINE NEGATIVE (NEGATIVE); BLOOD URINE SMALL (NEGATIVE); COLOR YELLOW; GLUCOSE URINE NEGATIVE (NEGATIVE); KETONE URINE NEGATIVE (NEGATIVE); LEUKOCYTES URINE LARGE (NEGATIVE); NITRITE URINE NEGATIVE (NEGATIVE); PH URINE 5.5; PROTEIN URINE NEGATIVE (NEGATIVE); SP GRAVITY URINE 1.007; TURBIDITY URINE HAZY (CLEAR); UROBILINOGEN URINE NORMAL (NORMAL)
[2019-04-04 14:37] LABS: UR EPITHELIAL CELLS <10 /HPF (<10); URINE BACTERIA 1+ /HPF; URINE RBC <10 /HPF (<10); URINE WBC TNTC /HPF (<10)
[2019-04-04 14:39] LABS: AGAP 11; ALBUMIN 3.9 g/dL (3.5-5.0); ALKALINE PHOSPHATASE 421 U/L (32-104); BUN 7 mg/dL (8-22); CALCIUM 9.2 mg/dL (8.8-10.2); CHLORIDE 102 mmol/L (98-107); COSMO 282; CREATININE 0.4 mg/dL (0.5-0.9); ESTIMATED GFR > 60; GLUCOSE 113 mg/dL (70-104); GOT 79 U/L (10-30); GPT 89 U/L (10-36); POTASSIUM 4.3 mmol/L (3.5-5.1); SODIUM 142 mmol/L (136-145); TCO2 29 mmol/L (25-35); TOTAL PROTEIN 6.5 g/dL (6.3-8.3)
[2019-04-04 14:43] LABS: UR AMPHETAMINES QUAL PRESUMPTIVE POSITIVE (NONE DETECT); UR BARBITUATES QUAL NONE DETECTED (NONE DETECT); UR BENZODIAZEPIN QUAL NONE DETECTED (NONE DETECT); UR COCAINE QUAL NONE DETECTED (NONE DETECT); UR METHADONE QUAL NONE DETECTED (NONE DETECT); UR METHAMPHETAMINE QUAL NONE DETECTED (NONE DETECT); UR OPIATES QUAL NONE DETECTED (NONE DETECT)
[2019-04-04 14:44] LABS: UR CANNABINOIDS QUAL NONE DETECTED (NONE DETECT); UR OXYCODONE QUAL NONE DETECTED (NONE DETECT); UR PCP QUAL NONE DETECTED (NONE DETECT); UR PROPOXYPHENE QUAL NONE DETECTED (NONE DETECT); UR TCA QUAL NONE DETECTED (NONE DETECT)
--- NOTE | 2019-04-04 14:51 | EKG Report ---
Test Performed on : 04/04/2019 2:52:26 PM Test Reason : AMS Blood Pressure : / mmHG Vent. Rate : 093 BPM Atrial Rate : 241 BPM P-R Int : 000 ms QRS Dur : 082 ms QT Int : 374 ms P-R-T Axes : 000 056 057 degrees QTc Int : 465 ms Atrial fibrillation. Abnormal ECG When compared with ECG of 28-FEB-2019 12:54, No significant change was found Unconfirmed Result
--- NOTE | 2019-04-04 15:36 | Diag Imaging Result Doc PS360 ---
EXAM: CT HEAD W/O CONTRAST HISTORY: Altered mental status TECHNIQUE: CT head without intravenous contrast COMPARISON: 02/27/2019 FINDINGS: No parenchymal hemorrhage. No epidural or subdural hematoma. No subarachnoid hemorrhage. No mass identified on this noncontrasted exam. No hydrocephalus. No sinus opacification. IMPRESSION: No hemorrhage. Negative brain CT without contrast no change This exam was performed using automated exposure control, adjustment of mA or kV according to patient size, and/or use of iterative reconstruction technique. Electronically signed by Dominic Jacobo 04/04/2019 3:34 PM
--- NOTE | 2019-04-04 15:37 | Diag Imaging Result Doc PS360 ---
EXAM: CHEST-PORTABLE HISTORY: AMS TECHNIQUE: Single view COMPARISON: 03/06/2019 FINDINGS: The lungs are well expanded. Minimal atelectasis or scarring in the lower lungs. The heart is not enlarged. The vessels are not distended. There are no infiltrates. No effusion identified. IMPRESSION: Stable chest Electronically signed by Dominic Jacobo 04/04/2019 3:34 PM
--- NOTE | 2019-04-04 15:55 | Diag Imaging Result Doc PS360 ---
EXAM: CT ABD/PELVIS W/IV CONT ONLY HISTORY: abdominal pain TECHNIQUE: CT abdomen and pelvis with intravenous contrast only. No oral contrast ordered. COMPARISON: 12/03/2016 FINDINGS: There is a small left pleural effusion with basilar atelectasis. No calcified gallstones or adjacent inflammation. Normal liver, spleen, pancreas, and adrenal glands. There are two 4 mm nonobstructing right renal stones. No hydronephrosis. There are several small renal cysts. No aortic aneurysm. Moderate atherosclerosis. No bowel obstruction. There are scattered colonic diverticula. No abscess. No ascites. The uterus has been is small. No pelvic mass. Urinary bladder is moderately distended. There is debris within the urinary bladder. The bones are osteopenic. Multiple lumbar compression fractures and subluxation of L5 on S1. Findings are similar to the prior exam. IMPRESSION: 1.Possible hemorrhagic products dependently in the urinary bladder. Urinalysis recommended. 2.Colonic diverticulosis 3.Nonobstructing right renal stones 4.Small left pleural effusion with basilar atelectasis 5.The bones are osteopenic and there are multiple compression fractures This exam was performed using automated exposure control, adjustment of mA or kV according to patient size, and/or use of iterative reconstruction technique. Electronically signed by Dominic Jacobo 04/04/2019 3:53 PM
--- NOTE | 2019-04-04 16:25 | PROVIDER DOCUMENTATION ---
This chart was entered by aLly Muñoz Scribe, acting as scribe for Jordyn Estrada MD. HPI-General Adult - General Chief Complaint: Altered Mental Status Stated Complaint: ams Time Seen by Provider: 04/04/19 13:25 Source: patient, EMS Allergies/Adverse Reactions: Patient Allergies Allergy/AdvReac Type Severity Reaction Status Date / Time oxycodone [Oxycodone] AdvReac Intermediate Unknown Verified 04/04/19 14:55 lorazepam [From Ativan] AdvReac agitation Verified 04/04/19 14:55 sulfamethoxazole AdvReac Unknown Verified 04/04/19 14:55 [From Bactrim] trimethoprim [From Bactrim] AdvReac Unknown Verified 04/04/19 14:55 Home Medications: Home Medication List Medication Instructions Recorded Confirmed Last Taken Type Dextroamphetamine/Amphetamine 20 mg PO BID 12/04/12 04/04/19 01/18/17 History [Adderall 20 mg Tablet] 20mg Furosemide 40 mg PO QAM 12/04/12 04/04/19 01/18/17 History 40mg Levothyroxine [Synthroid] 100 microgm PO DAILY 12/04/12 04/04/19 01/18/17 History 100mg Polyethylene Glycol 3350 [Miralax] 17 gm PO DAILY PRN 12/12/12 04/04/19 01/18/17 History 17gram Acetaminophen [Pain Relief] 325 mg PO Q6-8H PRN PRN 01/18/17 04/04/19 Unknown History Cyclosporine 0.05% Oph Drops 3 each BOTH EYES 4XDAY 01/18/17 04/04/19 01/18/17 History [Restasis 0.05% Oph Drops] Fingolimod HCl [Gilenya] 0.5 mg PO DAILY 01/18/17 04/04/19 01/18/17 History 0.5mg Fluticasone 50 Mcg Nasal [place] 2 spray [place]TON DAILY PRN 01/18/17 04/04/19 01/18/17 History [Flonase] Hydrocortisone 1% Cream 1 applicatn TOP BID PRN PRN 01/18/17 04/04/19 01/18/17 History Lidocaine 5% Patch [Lidoderm] 1 each TOP DAILY PRN 01/18/17 04/04/19 01/18/17 History 1 Multivitamin with Minerals 1 each PO DAILY 01/18/17 04/04/19 01/18/17 History [Multiple Vitamin] 1 Omeprazole 20 mg PO DAILY 01/18/17 04/04/19 01/18/17 History 20mg Potassium Chloride E.r. [Klor-Con] 20 meq PO DAILY 01/18/17 04/04/19 01/18/17 History 20MEQ Simethicone [Bicarsim Forte] 125 mg PO 4XDAY 01/18/17 04/04/19 01/18/17 History Apixaban [Eliquis] 5 mg PO BID tab 03/07/19 04/04/19 Unknown Rx Baclofen [Lioresal] 10 mg PO BID PRN PRN tab 03/07/19 04/04/19 Unknown Rx Hydrocodone/Acetaminophen [Ward 1 tab PO QHS PRN #15 tab 03/07/19 04/04/19 Unknown Rx 5-325 Tablet] Metoprolol [Lopressor] 25 mg PO BID tab 03/07/19 04/04/19 Unknown Rx Propylene Glycol/Peg Oph Soln 0 ea BOTH EYES PRN PRN droperette 03/07/19 04/04/19 Unknown Rx [Systane Eye Drops] Metoclopramide HCl [Reglan] 5 mg PO 04/04/19 Unknown History Tramadol HCl [Ultram] 50 mg PO BID 04/04/19 04/04/19 Unknown History - History of Present Illness -Gen Adult Nature of Presenting Problems: pt is a 78 yowf presenting to er w/ems w/cc ems sts pt was found altered this am, unknown amount of time. pt was a&ox2 at ems arrival but is a&ox3 in er. pt was dx w/UTI at [facility]. pt c/o abd pain, n/d w/no vomiting. Location of Pain/Injury: reports: abdomen Pain Radiation: reports: no radiation Severity: reports: mild Onset/Duration: reports: this morning Timing: reports: still present Context/Activities at Onset: reports: none Modifying Factors: improves with: nothing Associated Symptoms: reports: diarrhea, nausea. denies: vomiting Recently seen or treated by another doctor?: Yes (tx for UTI lawanda ) Review of Systems - Adult - REVIEW OF SYSTEMS - ADULT Constitutional: reports: see HPI, other (ams). denies: fever, fatique, night sweats Eyes: reports: no symptoms reported Ears, Nose, Mouth & Throat: reports: no symptoms reported Cardiovascular: reports: no symptoms reported Respiratory: reports: no symptoms reported Gastrointestinal: reports: see HPI, abdominal pain, diarrhea, nausea. denies: difficulty swallowing, frequent heartburn, vomiting Genitourinary: reports: see HPI, other (being tx for uti) Musculoskeletal: reports: no symptoms reported Integumentary: reports: no symptoms reported Neurological: reports: no symptoms reported Psychiatric: reports: no symptoms reported Endocrine: reports: no symptoms reported Hematologic/Lymphatic: reports: no symptoms reported Allergic/Immunologic: reports: no symptoms reported All Other Systems: Reviewed and Negative Past History - Adult - PAST MEDICAL HISTORY-ADULT Review of Records: reports: Nursing Assessment Review, Medications Reviewed, Social history reviewed & non-contributory. Major Childhood Illnesses: reports: denies history Cardiovascular: reports: HTN, hyperlipidemia Respiratory: reports: denies history Gastrointestinal: reports: GERD Obstetrical/Gynecological: reports: denies history Genitourinary: reports: chronic UTI's Musculoskeletal: reports: denies history Neurological: reports: Multiple Sclerosis Endocrine/Immune: reports: denies history Other Conditions: reports: denies history - PRIOR SURGERIES/PROCEDURES Surgical/Procedure History: reports: joint replacement - IMMUNIZATION STATUS Childhood Immunizations: See Nurse Assessment Flu Vaccine: See Nurse Assessment - FAMILY HISTORY Family History: reviewed, not pertinent - SOCIAL HISTORY Smoking: other (former smoker) Substance Use: none/never Alcohol Use Frequency: never Physical Exam-General - PHYSICAL EXAM-ADULT Initial Vital Signs Reviewed: Yes - CONSTITUTIONAL General Appearance: appears well, alert, no apparent distress - EYES Eyes: PERRL/EOMI, pink conjunctivae - HEAD, EARS, NOSE, MOUTH & THROAT HENMT: normocephalic/atraumatic, moist mucous membranes, normal ENT inspection - NECK Neck: non-tender, full range of motion, supple, normal inspection - RESPIRATORY Respiratory: chest non-tender, lungs clear, normal breath sounds - CARDIOVASCULAR Cardiovascular: normal peripheral pulses, regular rate, rhythm - GASTROINTESTINAL (ABDOMEN) Abdominal Exam: normal bowel sounds, soft, no organomegaly, no pulsatile mass, tenderness (general diffuse abd tenderness on palp). negative: non tender, distended, guarding, rigid, rebound - MUSCULOSKELETAL Back Exam: normal inspection Extremity: normal range of motion, non-tender, normal inspection - SKIN Integumentary: normal color, normal turgor, warm/dry - NEUROLOGIC Neurologic: entry writer II-XII nml as tested, grossly normal, no motor/sensory deficits - PSYCHIATRIC Psych/Mental Status: normal mood/affect, normal thought content, normal thought process, oriented x 3. negative: disoriented x 3 Progress - PLAN OF CARE/RESULTS Result Diagrams: 04/04/19 14:03 04/04/19 14:03 - REASSESSMENT Reassessment #1 Time Reassessed: 16:32 Status: improving (Per [facility], pt just completed Meropenem on 03/31/2019) - EKG 1 Time of EKG reading by physician:: 14:52 EKG Read and Signed by:: Jordyn Estrada EKG Interpretation (*Must complete 3 of following elements*): Abnormal Rate: 93 Rhythm: AFIB [place]: normal QRS: normal ST Wave: normal - XRAY 1 XRAY Study: Chest Impression: See EMR Report (EXAM: CHEST-PORTABLE HISTORY: AMS TECHNIQUE: Single view COMPARISON: 03/06/2019 FINDINGS: The lungs are well expanded. Minimal atelectasis or scarring in the lower lungs. The heart is not enlarged. The vessels are not distended. There are no infiltrates. No effusion identified. IMPRESSION: Stable chest Electronically signed by Dominic Jacobo 04/04/2019 3:34 PM) - CT/MRI 1 CT Study: Head Impression: See EMR Report ( EXAM: CT HEAD W/O CONTRAST HISTORY: Altered mental status TECHNIQUE: CT head without intravenous contrast COMPARISON: 02/27/2019 FINDINGS: No parenchymal hemorrhage. No epidural or subdural hematoma. No subarachnoid hemorrhage. No mass identified on this noncontrasted exam. No hydrocephalus. No sinus opacification. IMPRESSION: No hemorrhage. Negative brain CT without contrast no change This exam was performed using automated exposure control, adjustment of mA or kV according to patient size, and/or use of iterative reconstruction technique.) 2 CT Study: Abdomen, Pelvis Impression: Abnormal, See EMR Report ( EXAM: CT ABD/PELVIS W/IV CONT ONLY H ISTORY: abdominal pain TECHNIQUE: CT abdomen and pelvis with intravenous contrast only. No oral contrast ordered. COMPARISON: 12/03/2016 FINDINGS: There is a small left pleural effusion with basilar atelectasis. No calcified gallstones or adjacent inflammation. Normal liver, spleen, pancreas, and adrenal glands. There are two 4 mm nonobstructing right renal stones. No hydronephrosis. There are several small renal cysts. No aortic aneurysm. Moderate atherosclerosis. No bowel obstruction. There are scattered colonic diverticula. No abscess. No ascites. The uterus has been is small. No pelvic mass. Urinary bladder is moderately distended. There is debris within the urinary bladder. The bones are osteopenic. Multiple lumbar compression fractures and subluxation of L5 on S1. Findings are similar to the prior exam. IMPRESSION: 1.Possible hemorrhagic products dependently in the urinary bladder. Urinalysis recommended. 2.Colonic diverticulosis 3.Nonobstructing right renal stones 4.Small left pleural effusion with basilar atelectasis 5.The bones are osteopenic and there are multiple compression fractures) - CONSULTS/PCP/HOSPITALIST Notification #1 *Consult/PCP/Hospitalist*: d/w Dr Webb Time Discussed: 16:20 Consult Disposition: Admit (advised meropenem and wait for culture results.) Departure - Departure Date of Disposition Decision: 04/04/19 Time of Disposition Decision: 16:12 DIAGNOSIS: UTI (urinary tract infection), AMS (altered mental status) Disposition: ADMITTED INPATIENT 09 Certified Medical Emergency: Emergent Condition: Stable Referrals and Follow-Ups: None,PCP [Primary Care Provider] - - Critical Care Note This patient required my direct & personal management of CC.: No Attestation - Physician/ OMA Attestation Patient care was provided by Advanced Practice Provider:: No The physician spent face to face time with patient:: Yes Advanced Practice Provider documentation review:: Supervising physician onsite and consulted in the evaluation and care of this patient. The physician did have a face to face encounter with the patient. This chart was documented by the indicated scribe, (Laly Muñoz Scribe) and accurately reflects the services I performed and decisions made by me, Jordyn Estrada MD, as attested by the provider's signature.
[2019-04-04] MEDS ORDERED: MERREM 1 GM in NS 50 ML IV ONE (16:57)
[2019-04-04] MEDS ORDERED: ZOFRAN IV PRN (18:37)
[2019-04-04] MEDS ORDERED: LIDODERM TOP PRN (18:38)
[2019-04-04] MEDS ORDERED: NORCO-5 PO PRN (18:38)
[2019-04-04] MEDS ORDERED: FLONASE NAS PRN (18:38)
[2019-04-04] MEDS ORDERED: SYSTANE EYE DROPS BOTH EYES PRN (18:38)
[2019-04-04] MEDS ORDERED: MIRALAX PO PRN (18:38)
[2019-04-04] MEDS ORDERED: TYLENOL PO PRN (18:38)
[2019-04-04] MEDS ORDERED: LIORESAL PO PRN (18:38)
[2019-04-04] MEDS ORDERED: HYDROCORTISONE 1% CREAM TOP PRN (18:38)
[2019-04-04] MEDS ORDERED: NS 1,000 ML IV SCH (18:45)
[2019-04-04] MEDS ORDERED: MERREM 1 GM in NS 50 ML IV SCH (18:45)
--- NOTE | 2019-04-04 19:50 | HISTORY AND PHYSICAL ---
CHIEF COMPLAINT: Altered mental status. HISTORY OF PRESENT ILLNESS: The patient is a very pleasant, elderly female, who apparently was just in the hospital for a urinary infection and was transitioned to rehab. When the staff checked on her today, they noted that she was confused, disoriented, and therefore they sent her back to the ER. CT of the head was negative. It does appear as though she has a recurrent urinary infection. She has also been complaining of abdominal pain on the right side which she states has been going on for approximately 5 years. States she is having pain on her left side that she can feel moving when she touches it with her hand. ALLERGIES: Oxycodone, Ativan causing agitation, Bactrim. MEDICATIONS: Adderall b.i.d. 20 mg, Lasix 40 mg in the morning, Synthroid 100, MiraLAX, Tylenol p.r.n., Restasis eyedrops, fingolimod 0.5 mg daily, fluticasone, hydrocortisone, multivitamin, omeprazole, potassium 20, Eliquis 5 b.i.d., baclofen, [place] 5 p.r.n., Reglan, and tramadol 50 b.i.d. REVIEW OF SYSTEMS: Difficult to obtain from Ms. Aguayo. It does not appear as though she has had any fever. She does appear to be much more alert and oriented to the family. have any knowledge of her current symptoms. She does have some diarrhea that they note has been going on for approximately a month. She has pain in the right side of her abdomen that has been going on approximately 5 years. Denies any headaches, fevers. Denies any blood in her stool or her emesis. Denies any blood in her urine. Denies any current urinary complaints. Weight has been stable. Denies any swelling in her lower extremities. PAST MEDICAL HISTORY: Significant for hypertension, hyperlipidemia, chronic reflux, recurrent UTIs, multiple sclerosis. She has had orthopedic surgery in the past. She has hypothyroidism. FAMILY HISTORY: Noncontributory. SOCIAL HISTORY: She is a former smoker, does not currently smoke. Does not drink. She currently is at [facility]. PHYSICAL EXAMINATION: VITAL SIGNS: Reviewed. She is afebrile. Blood pressure is stable. Heart rate 80s, respiratory 20. GENERAL: Patient is awake, alert. She is in no current respiratory distress. Appears oriented per her family. HEENT: Normocephalic. NECK: Supple. CARDIOVASCULAR: Regular rate. No murmurs. CHEST: Clear. No wheezing. No crackles. ABDOMEN: Soft, obese, nondistended, relatively nontender. EXTREMITIES: Moves all extremities. No edema. NEUROLOGIC: No focal changes currently. ASSESSMENT: 1. Urinary tract infection in a patient who apparently just completed Merrem on 03/31/2019, for a urinary tract infection and has recurrent urinary tract infection. 2. Hypertension. 3. Hypothyroidism. 4. Multiple sclerosis. 5. High cholesterol. 6. Chronic reflux. 7. Others. PLAN: We are going to admit patient to the hospital. As she was just on Merrem and stopped, going to restart that until we have urine culture dictating otherwise. We will restart her home medications and will follow. cc: Raman Webb MD MTDD
[2019-04-04] MEDS: MERREM 1 GM in NS 50 ML IV SCH (22:02)
[2019-04-04] MEDS: ADDERALL PO SCH (22:02)
[2019-04-04] MEDS: LOPRESSOR PO SCH (22:02)
[2019-04-04] MEDS: MYLICON PO SCH (22:03)
[2019-04-04] MEDS: ULTRAM PO SCH (22:05)
[2019-04-04] MEDS: ELIQUIS PO SCH (22:05)
[2019-04-05 05:57] LABS: HEMATOCRIT 40.4 % (37.0-47.0); HEMOGLOBIN 12.2 g/dL (12.0-16.0); MCH 28.3 PG (27-31); MCHC 30.2 g/dL (33-37); MCV 93.7 FL (81-99); MPV 9.6 FL (7.4-10.4); RBC 4.31 XMIL (4.2-5.4); RDW 15.8 % (11.5-14.5); WBC 4.34 X1000 (4.8-10.8)
[2019-04-05 06:43] LABS: AGAP 11; ALBUMIN 3.2 g/dL (3.5-5.0); ALKALINE PHOSPHATASE 335 U/L (32-104); BUN 9 mg/dL (8-22); CHLORIDE 102 mmol/L (98-107); COSMO 280; CREATININE 0.4 mg/dL (0.5-0.9); ESTIMATED GFR > 60; GLUCOSE 129 mg/dL (70-104); GOT 44 U/L (10-30); GPT 61 U/L (10-36); MAGNESIUM 1.7 mg/dL (1.5-2.7); POTASSIUM 3.5 mmol/L (3.5-5.1); SODIUM 140 mmol/L (136-145); TCO2 26 mmol/L (25-35); TOTAL PROTEIN 6.1 g/dL (6.3-8.3)
[2019-04-05] MEDS ORDERED: PRILOSEC PO SCH (09:00)
[2019-04-05] MEDS ORDERED: SYNTHROID PO SCH (09:00)
[2019-04-05] MEDS: MERREM 1 GM in NS 50 ML IV SCH ×2 (09:30→17:11)
[2019-04-05] MEDS: ELIQUIS PO SCH ×2 (09:31→21:42)
[2019-04-05] MEDS: KLOR-CON PO SCH (09:31)
[2019-04-05] MEDS: ADDERALL PO SCH (09:31)
[2019-04-05] MEDS: LOPRESSOR PO SCH ×2 (09:31→21:41)
[2019-04-05] MEDS: LASIX PO SCH (09:31)
[2019-04-05] MEDS: MYLICON PO SCH ×4 (09:31→21:41)
[2019-04-05] MEDS: THERA M PLUS PO SCH (09:31)
[2019-04-05] MEDS: ULTRAM PO SCH ×2 (09:31→21:41)
[2019-04-05] MEDS: RESTASIS 0.05% OPH DROPS BOTH EYES SCH ×3 (09:31→17:12)
[2019-04-05] MEDS: PATIENT'S OWN MED PO SCH (09:32)
--- NOTE | 2019-04-05 17:56 | PROGRESS NOTE ---
DATE: 04/05/2019 ADDENDUM: ASSESSMENT AND PLAN: 1. Recurrent urinary tract infection, possibly extended-spectrum beta-lactamase. So far culture has no growth. We will continue to monitor. She has been empirically placed back on Merrem. 2. Abdominal pain. She is due for an outpatient workup, colonoscopy, but really unclear where her original discomfort was. She does have some diarrhea. She had a CT scan done 04/04/2019 and she had some hemorrhagic products in her urinary bladder consistent with urinary tract infection. She has had a colonoscopy but it was in 2017. She had a gastric polyp at that point. We will get treatment and follow. 3. Hypertension. Aware. We will continue to monitor closely. 4. Multiple sclerosis. We will continue to follow. Continue regular medications. cc: Lalo Das MD
[2019-04-05] MEDS: SYSTANE EYE DROPS BOTH EYES SCH (18:11)
[2019-04-06] MEDS: MERREM 1 GM in NS 50 ML IV SCH ×3 (02:00→17:59)
[2019-04-06] MEDS: SYSTANE EYE DROPS BOTH EYES SCH ×5 (02:11→21:16)
[2019-04-06 06:10] LABS: BASO# 0.01 X1000 (0.0-0.2); BASO% 0.2 % (0.0-0.8); EOS# 0.24 X1000 (0.0-0.7); EOS% 4.6 % (0.0-10.0); HEMATOCRIT 39.8 % (37.0-47.0); HEMOGLOBIN 12.4 g/dL (12.0-16.0); IMM GRAN# 0.01 X1000 (0.0-0.04); IMM GRAN% 0.2 % (0.0-0.5); LYMPH# 0.57 X1000 (1.2-3.4); MCH 28.8 PG (27-31); MCHC 31.2 g/dL (33-37); MCV 92.6 FL (81-99); MONO# 0.82 X1000 (0.11-0.59); MONO% 15.8 % (1.7-9.3); MPV 9.6 FL (7.4-10.4); NEUT# 3.53 X1000 (1.4-6.5); NEUT% 68.2 % (42.2-75.2); PLT 325 X1000 (130-400); RDW 15.5 % (11.5-14.5); WBC 5.18 X1000 (4.8-10.8)
[2019-04-06] MEDS: ADDERALL PO SCH ×2 (06:37→12:33)
[2019-04-06 06:53] LABS: AGAP 13; ALBUMIN 3.1 g/dL (3.5-5.0); ALKALINE PHOSPHATASE 329 U/L (32-104); BUN 8 mg/dL (8-22); CALCIUM 8.9 mg/dL (8.8-10.2); CHLORIDE 101 mmol/L (98-107); COSMO 276; CREATININE 0.4 mg/dL (0.5-0.9); ESTIMATED GFR > 60; GLUCOSE 129 mg/dL (70-104); GOT 49 U/L (10-30); GPT 56 U/L (10-36); POTASSIUM 3.2 mmol/L (3.5-5.1); SODIUM 138 mmol/L (136-145); TCO2 25 mmol/L (25-35); TOTAL PROTEIN 6.2 g/dL (6.3-8.3)
[2019-04-06] MEDS: RESTASIS 0.05% OPH DROPS BOTH EYES SCH ×2 (09:39→21:16)
[2019-04-06] MEDS: MYLICON PO SCH ×4 (09:41→21:16)
[2019-04-06] MEDS: KLOR-CON PO SCH (09:41)
[2019-04-06] MEDS: PRILOSEC PO SCH (09:42)
[2019-04-06] MEDS: ULTRAM PO SCH ×2 (09:44→21:15)
[2019-04-06] MEDS: SYNTHROID PO SCH (09:44)
[2019-04-06] MEDS: LASIX PO SCH (09:44)
[2019-04-06] MEDS: LOPRESSOR PO SCH ×2 (09:44→21:15)
[2019-04-06] MEDS: THERA M PLUS PO SCH (09:44)
[2019-04-06] MEDS: ELIQUIS PO SCH ×2 (09:44→21:15)
[2019-04-06] MEDS: PATIENT'S OWN MED PO SCH (09:47)
--- NOTE | 2019-04-06 15:25 | PROGRESS NOTE ---
DATE: 04/06/2019 SUBJECTIVE: The patient has no major complaints except for her stomach. OBJECTIVE: Vital Signs: Blood pressure is 114/69, heart rate 79, respiratory rate of 20, temperature 98.1 degrees. Cardiovascular: Regular rate and rhythm. Pulmonary: Bilateral breath sounds, clear to auscultation. Gastrointestinal: Soft, nontender, nondistended. Bowel sounds are positive. LABORATORY DATA: White count 5, hemoglobin and hematocrit of 12 and 39, platelets 325,000. Potassium 3.2, AST and ALT are 49 and 56 respectively. Clostridium difficile was negative. PROBLEM LIST: 1. Recurrent urinary tract infection. She is symptomatic. She is on Merrem currently, so we will continue to monitor. 2. Abdominal pain. It is really unremarkable. There were some hemorrhagic products, so I do not know if she may need a Urology consultation, especially since she has got recurrent urinary tract infection, but we will continue to monitor closely. DISPOSITION: Pending her clinical status, but she should be able to dc soon, after west evaluation. We will have to decide about her other issues half-way. cc: Lalo Das MD [facility]
[2019-04-07] MEDS: MERREM 1 GM in NS 50 ML IV SCH (00:45)
[2019-04-07] MEDS: PRILOSEC PO SCH (06:09)
[2019-04-07] MEDS: ADDERALL PO SCH ×2 (06:09→13:23)
[2019-04-07] MEDS: SYNTHROID PO SCH (06:09)
[2019-04-07 06:27] LABS: BASO# 0.01 X1000 (0.0-0.2); BASO% 0.2 % (0.0-0.8); EOS# 0.15 X1000 (0.0-0.7); EOS% 3.1 % (0.0-10.0); HEMATOCRIT 40.8 % (37.0-47.0); HEMOGLOBIN 12.6 g/dL (12.0-16.0); IMM GRAN# 0.01 X1000 (0.0-0.04); IMM GRAN% 0.2 % (0.0-0.5); LYMPH# 0.46 X1000 (1.2-3.4); LYMPH% 9.5 % (20.5-51.1); MCH 28.9 PG (27-31); MCHC 30.9 g/dL (33-37); MCV 93.6 FL (81-99); MONO# 0.72 X1000 (0.11-0.59); MONO% 14.8 % (1.7-9.3); MPV 9.9 FL (7.4-10.4); NEUT% 72.2 % (42.2-75.2); PLT 328 X1000 (130-400); RBC 4.36 XMIL (4.2-5.4); RDW 15.4 % (11.5-14.5); WBC 4.85 X1000 (4.8-10.8)
[2019-04-07 06:42] LABS: AGAP 13; BUN 8 mg/dL (8-22); CALCIUM 9.2 mg/dL (8.8-10.2); CHLORIDE 100 mmol/L (98-107); COSMO 281; CREATININE 0.4 mg/dL (0.5-0.9); ESTIMATED GFR > 60; GLUCOSE 120 mg/dL (70-104); POTASSIUM 3.3 mmol/L (3.5-5.1); SODIUM 141 mmol/L (136-145); TCO2 29 mmol/L (25-35)
[2019-04-07] MEDS: LOPRESSOR PO SCH ×2 (09:18→21:03)
[2019-04-07] MEDS: ULTRAM PO SCH ×2 (09:18→21:03)
[2019-04-07] MEDS: SYSTANE EYE DROPS BOTH EYES SCH ×4 (09:19→21:03)
[2019-04-07] MEDS: RESTASIS 0.05% OPH DROPS BOTH EYES SCH ×2 (09:19→21:02)
[2019-04-07] MEDS: MYLICON PO SCH ×4 (09:21→21:03)
[2019-04-07] MEDS: LASIX PO SCH (09:21)
[2019-04-07] MEDS: ELIQUIS PO SCH ×2 (09:21→21:03)
[2019-04-07] MEDS: THERA M PLUS PO SCH (09:22)
[2019-04-07] MEDS: KLOR-CON PO SCH (09:22)
[2019-04-07] MEDS: PATIENT'S OWN MED PO SCH (09:22)
[2019-04-07] MEDS ORDERED: LINZESS PO SCH (10:15)
[2019-04-07] MEDS: ROCEPHIN 1 GM in NS 50 ML IV SCH (11:18)
--- NOTE | 2019-04-07 12:38 | PROGRESS NOTE ---
DATE: 04/07/2019 SUBJECTIVE: Patient has no major complaints. OBJECTIVE: Blood pressure 158/84, heart rate of 117, respiratory rate of 20, temperature 98.4 degrees, 96% on room air.Cardiovascular: Regular rate and rhythm. Pulmonary: Bilateral breath sounds clear to auscultation. GI: Soft, nontender, nondistended. Bowel sounds are positive. LABORATORY DATA: White count 4, hemoglobin and hematocrit 12 and 40, platelets 328,000, potassium 3.3. PROBLEM LIST: 1. Recurrent UTI. This time, though, her E. coli is not ESBL. It is sensitive to cefazolin and Levaquin so we should be able discharge her on Keflex or Levaquin orally. 2. Abdominal pain is very kind of intermittently chronic. I am not sure if this is not some irritable bowel issues. We resumed her Linzess. I will repeat some plain films. She is already on simethicone. Sure we can add some dicyclomine and see if that helps, but we will continue to monitor closely. cc: Lalo Das MD
[2019-04-07] MEDS: ROBITUSSIN-DM PO PRN ×2 (13:27→21:04)
[2019-04-07 14:59] LABS: OCCULT BLOOD 1 NEGATIVE (NEGATIVE)
--- NOTE | 2019-04-07 19:13 | Diag Imaging Result Doc PS360 ---
EXAM: FLAT/UPRIGHT ABD/1 VIEW CHEST 04/07/2019 HISTORY: abdominal pain TECHNIQUE: AP erect chest and flat and upright abdomen COMMENT: There is a hiatal hernia. The appearance of the chest has not changed significantly since 04/04/2019. There is a colonic and small bowel gas pattern which is nonspecific in appearance. There is stool in the rectum. Stomach is not distended. There is no evidence of organomegaly or mass. IMPRESSION: Nonspecific abdomen. Stable chest. Electronically signed by Tay Lobato 04/07/2019 7:11 PM
[2019-04-08] MEDS: PRILOSEC PO SCH (06:14)
[2019-04-08] MEDS: SYNTHROID PO SCH (06:14)
[2019-04-08] MEDS: ADDERALL PO SCH ×2 (06:14→13:25)
[2019-04-08 06:59] LABS: INFLUENZA A NEGATIVE (NEGATIVE); INFLUENZA B NEGATIVE (NEGATIVE)
[2019-04-08] MEDS: ROCEPHIN 1 GM in NS 50 ML IV SCH ×2 (10:17→20:07)
[2019-04-08] MEDS: LASIX PO SCH (10:18)
[2019-04-08] MEDS: MYLICON PO SCH ×4 (10:18→20:05)
[2019-04-08] MEDS: KLOR-CON PO SCH (10:18)
[2019-04-08] MEDS: ELIQUIS PO SCH ×2 (10:18→20:05)
[2019-04-08] MEDS: THERA M PLUS PO SCH (10:18)
[2019-04-08] MEDS: LOPRESSOR PO SCH ×2 (10:18→20:05)
[2019-04-08] MEDS: SYSTANE EYE DROPS BOTH EYES SCH ×4 (10:21→20:43)
[2019-04-08] MEDS: RESTASIS 0.05% OPH DROPS BOTH EYES SCH ×2 (10:21→20:06)
[2019-04-08] MEDS: ULTRAM PO SCH ×2 (10:47→20:05)
[2019-04-08] MEDS: PATIENT'S OWN MED PO SCH (10:47)
[2019-04-08] MEDS: ROBITUSSIN-DM PO PRN (10:47)
[2019-04-08] MEDS: TYLENOL PO PRN ×2 (11:34→18:51)
[2019-04-08] MEDS ORDERED: LINZESS PO ONE (16:12)
[2019-04-08 16:32] LABS: URINE SOURCE CATH
[2019-04-08 16:46] LABS: BILIRUBIN URINE NEGATIVE (NEGATIVE); BLOOD URINE MODERATE (NEGATIVE); COLOR YELLOW; GLUCOSE URINE NEGATIVE (NEGATIVE); KETONE URINE NEGATIVE (NEGATIVE); LEUKOCYTES URINE LARGE (NEGATIVE); NITRITE URINE NEGATIVE (NEGATIVE); PROTEIN URINE NEGATIVE (NEGATIVE); SP GRAVITY URINE 1.009; TURBIDITY URINE HAZY (CLEAR); UROBILINOGEN URINE NORMAL (NORMAL)
[2019-04-08 16:48] LABS: UR EPITHELIAL CELLS <10 /HPF (<10); URINE BACTERIA NEGATIVE /HPF; URINE RBC <10 /HPF (<10); URINE WBC TNTC /HPF (<10)
--- NOTE | 2019-04-08 17:51 | PROGRESS NOTE ---
DATE: 04/08/2019 SUBJECTIVE: She feels okay, but she has had some fevers today. OBJECTIVE: Blood pressure is 137/57, heart rate of 111, respiratory 20, temperature 98.3 degrees. She was 100.6.Cardiovascular: Regular rate and rhythm. Pulmonary: Bilateral breath sounds. Clear to auscultation, but she does have a very productive cough. LABORATORY DATA: White count: I do not have any new data today. PROBLEM LIST: 1. Escherichia coli urinary tract infection. This time it is not an extended spectrum beta- lactamases. She has been on Rocephin and has done okay, but now she is having fevers, but she also has a very productive cough which may be related to bronchitis or pneumonia. Her chest x-ray did not show any infiltrates though. 2. Abdominal pain, which is unremarkable, but her Linzess apparently has not been maintained. 3. Hypothyroidism. Continue regular medications. DISPOSITION: Anticipating discharging her tomorrow, but right now she has persistent fevers. We are going to hold off and I have bumped up her lidocaine to twice a day. cc: Lalo Das MD
[2019-04-08] MEDS: XOPENEX NEB INH SCH (21:00)
[2019-04-08] MEDS: ATROVENT NEB INH SCH (21:00)
[2019-04-09] MEDS: TYLENOL PO PRN (04:20)
[2019-04-09] MEDS: PRILOSEC PO SCH (06:12)
[2019-04-09] MEDS: ADDERALL PO SCH ×2 (06:12→12:59)
[2019-04-09 06:32] LABS: EOS# 0.06 X1000 (0.0-0.7); EOS% 1.7 % (0.0-10.0); HEMATOCRIT 38.1 % (37.0-47.0); HEMOGLOBIN 11.7 g/dL (12.0-16.0); IMM GRAN# 0.01 X1000 (0.0-0.04); IMM GRAN% 0.3 % (0.0-0.5); LYMPH# 0.46 X1000 (1.2-3.4); LYMPH% 13.3 % (20.5-51.1); MCH 28.5 PG (27-31); MCHC 30.7 g/dL (33-37); MCV 92.9 FL (81-99); MONO# 0.76 X1000 (0.11-0.59); MPV 10.1 FL (7.4-10.4); NEUT# 2.17 X1000 (1.4-6.5); NEUT% 62.7 % (42.2-75.2); PLT 260 X1000 (130-400); RDW 15.8 % (11.5-14.5); WBC 3.46 X1000 (4.8-10.8)
[2019-04-09 06:33] LABS: AGAP 12; BUN 11 mg/dL (8-22); CALCIUM 8.7 mg/dL (8.8-10.2); CHLORIDE 96 mmol/L (98-107); COSMO 270; CREATININE 0.4 mg/dL (0.5-0.9); ESTIMATED GFR > 60; GLUCOSE 109 mg/dL (70-104); POTASSIUM 3.6 mmol/L (3.5-5.1); SODIUM 135 mmol/L (136-145); TCO2 27 mmol/L (25-35)
[2019-04-09] MEDS ORDERED: LINZESS PO SCH (07:00)
[2019-04-09 07:24] LABS: LYMPHS 15 % (21-51); MONO 24 % (1-9); SEGS 61 % (42-75)
[2019-04-09] MEDS: XOPENEX NEB INH SCH ×2 (10:00→15:19)
[2019-04-09] MEDS: ATROVENT NEB INH SCH ×2 (10:00→15:19)
[2019-04-09] MEDS: LOPRESSOR PO SCH (10:16)
[2019-04-09] MEDS: KLOR-CON PO SCH (10:16)
[2019-04-09] MEDS: LASIX PO SCH (10:16)
[2019-04-09] MEDS: ROCEPHIN 1 GM in NS 50 ML IV SCH (10:16)
[2019-04-09] MEDS: THERA M PLUS PO SCH (10:16)
[2019-04-09] MEDS: SYNTHROID PO SCH (10:16)
[2019-04-09] MEDS: ELIQUIS PO SCH (10:16)
[2019-04-09] MEDS: ULTRAM PO SCH (10:16)
[2019-04-09] MEDS: MYLICON PO SCH ×2 (10:17→12:59)
[2019-04-09] MEDS: PATIENT'S OWN MED PO SCH (10:17)
[2019-04-09] MEDS: ROBITUSSIN-DM PO PRN (10:17)
[2019-04-09] MEDS: RESTASIS 0.05% OPH DROPS BOTH EYES SCH (10:19)
[2019-04-09] MEDS: SYSTANE EYE DROPS BOTH EYES SCH ×2 (10:19→12:59)
[2019-04-09] MEDS ORDERED: REGLAN PO PRN (10:20)
--- NOTE | 2019-04-09 12:56 | DISCHARGE SUMMARY ---
ADMISSION DATE: 04/04/2019 DISCHARGE DATE: 04/09/2019 DIAGNOSES: 1. Escherichia coli urinary tract infection, ESBL negative, status post Rocephin x6 days. 2. Abdominal pain, evidently she feels this is due to not having a bowel movement. Linzess has been restarted. 3. Hypothyroid. TSH is 0.67. 4. History of multiple sclerosis. 5. Chronic reflux. 6. Hypertension. DIAGNOSTICS: 1. CT of the abdomen and pelvis revealed possible hemorrhagic products dependently in the urinary bladder. Colonic diverticulosis, nonobstructing right renal stones, small left pleural effusion with basilar atelectasis. Bones are osteopenic with multiple compression fractures and lumbar subluxation of L5 on S1. 2. Chest x-ray. Stable chest, minimal atelectasis or scarring in the lower lungs. Heart is not enlarged. Vessels are not distended. There are no infiltrates. No effusion identified. 3. CT of the head. Negative brain CT without contrast. 4. Abdominal x-ray revealed nonspecific abdomen with stable chest. MICROBIOLOGY: 1. Urine culture revealed ESBL negative Escherichia coli. 2. Blood cultures x2 revealed no growth after 48 hours. 3. Stool for O and P revealed none seen. 4. Stool culture revealed no enteric pathogen. 5. Stool for white blood cells, none seen. HOSPITAL COURSE: Ms Aguayo presented to the emergency room with altered mental status. She had recently been treated for a urinary tract infection and had been transitioned to rehab on March 07. She completed [facility] on 03/31/2019. Urine culture revealed ESBL negative Escherichia coli for which she was treated with Rocephin initially and she will be discharged on Keflex. We continued her home medications and trending labs. She did complain of abdominal pain feeling over the last 2 days, feeling that she needs to have a bowel movement as she usually has bowel movements daily. Abdominal x-ray revealed a nonspecific abdomen. There was stool in the rectum. Evidently, she did not get Linzess while in the hospital. This has been restarted today. Thankfully she is ready to be discharged discharge. DISCHARGE VITAL SIGNS: Blood pressure is 117/76, heart rate 70, respirations 20, temperature 98.4 degrees oral with room air saturations 100%. DISCHARGE PHYSICAL EXAMINATION: Cardiovascular: Regular rate and rhythm. S1 and S2 are appreciated. She has no lower extremity edema. Calves are nontender. Bilateral peripheral pulses palpable x4 in extremities. Pulmonary: Breath sounds are diminished throughout. Chest rises and falls symmetric. Respirations: Chest wall is nontender to palpation. Gastrointestinal: Soft, nontender, nondistended with bowel sounds in all 4 quadrants. Neurologic: She is alert and oriented. DISCHARGE MEDICATIONS: 1. Ultram 50 mg p.o. b.i.d. 2. Mylicon 120 mg p.o. 4 times a day. 3. Systane eyedrops 1 drop both eyes 4 times a day. 4. Klor-Con 20 mEq daily. 5. MiraLAX 17 g p.o. daily. 6. Omeprazole is 20 mg daily. 7. Multivitamin 1 p.o. daily. 8. Lopressor 25 mg p.o. b.i.d. 9. Reglan 5 mg p.o. q.6 hours p.r.n. 10. Linzess 145 mcg p.o. daily. 11. Lidoderm patch topically daily. 12. Levothyroxine 100 mcg p.o. daily. 13. Hydrocortisone cream as directed. 14. [place] 5/325 mg 1 p.o. at bedtime. 15. Lasix 40 mg p.o. daily. 16. Flonase nose spray 2 sprays each nostril daily. 17. Gilenya 0.5 mg p.o. daily. 18. Adderall 20 mg p.o. daily. 19. Restasis eyedrops 3 to both eyes 4 times a day. 20. Keflex 500 mg 1 p.o. t.i.d. for 7 days. 21. Baclofen 10 mg p.o. b.i.d. p.r.n. pain. 22. Eliquis 5 mg p.o. b.i.d. 23. Tylenol 325 q.6h to 8 hours p.r.n DISPOSITION: She is being discharged back to her extended care facility in stable condition with family members present. TIME SPENT: This is a greater than 30 minute discharge. Dictated by SOWMYA Spann for Lalo Das MD cc: SOWMYA Spann MD
[2019-04-09 15:46] VITALS: BP 97/46
--- NOTE | 2019-04-10 14:27 | DISCHARGE SUMMARY ---
ADMISSION DATE: 04/04/2019 DISCHARGE DATE: 04/09/2019 BRIEF SUMMARY: Patient has no major complaints except she has a pain in her left side, but she had a large bowel movement today. She is not throwing up. White count 3, hemoglobin and hematocrit 11 and 38 platelets 260,000. Her abdominal exam is benign. All the rest of her labs are benign. UA still shows some pyuria, but she has not had any fever sense the night before and even then it was 100.2 at 6, so I think she is stable to be discharged on her current dose of Keflex. She has a negative ESBL. She has been on Rocephin and plan to discharge her on Keflex for an extended period of time for at least another 7 days. DISCHARGE CONDITION: Stable. Agree with discharge summary. A thirty-two minute discharge. cc: Lalo Das MD
== END 2019-04-09 17:15 | DRG 690 ==
LOC: P.ED 13:31 → P.MEDSURG 18:23 → SUATTDRO 18:23
PROVIDERS: ATTEND Internal Medicine